=== PATIENT | female | born 1955 | race Caucasian/White ===

== ENCOUNTER 2020-01-13 20:42 | Emergency (ER) | payer BC, SELFPAY ==
[2020-01-13 20:49] VITALS: BP 150/71; PULSE 75; RESP 16; TEMP 36.1; O2SAT 94
--- NOTE | 2020-01-13 20:50 | ED.GENADUL_ITS ---
Discharge Plan Disposition Patient Disposition: HOME Condition: Stable Discharge Details Chief Complaint: Laceration Clinical Impression: Face lacerations, Head injury Primary Care Provider: Faye Dougherty ED Provider: Tucker Anand Home Meds and New Rx's Prescriptions: No Action calcium carbonate-vitamin D3 [Calcium 500 + D] 1 EACH tablet 1 ea PO DAILY RF: 0 Discharge Instructions Instructions: Head Injury (ED), Facial Laceration (ED) Additional Instructions: Keep the area clean and dry, you may apply antibiotic ointment twice daily. Cool compresses as tolerated. Gfsq-[id number] medication such as Tylenol and/or Motrin as directed for discomfort. Please watch for new or evolving symptoms and return to the ER for any concerns. Sutures should be removed in 5 days. I do recommend reaching out your primary care provider on Wednesday to discuss outpatient reevaluation Medical Decision Making 64-year-old female presents having sustained a laceration after a fall getting out of an [place] chair. She does admit to having a couple glasses of wine. She was asymptomatic prior to the fall. Denies LOC. She appears well, nontoxic and is neurologically intact. Will update tetanus, repair the laceration, and given her head injury and alcohol, I do believe obtaining head CT is reasonable to rule intracranial process Tdap given Discussed benign CT with the patient. She has no additional questions or concerns and was comfortable discharge. Medical Records Medical records reviewed: Yes I reviewed the patient's medical records. Imaging Data Radiologic Study: Attestation: I personally reviewed and interpreted this imaging study as follows: Imaging: CT Scan Radiologist's impression: CT head without contrast read as negative per virtual radiology HPI General Mode of arrival: ambulatory . Date/Time Provider Initiated Documentation: 01/13/20 20:42 . Limitations to Documentation: no limitations . Information obtained by: patient . HPI Narrative: This is a 64-year-old female who reports approximately 3 hours ago she was at her son's house, had a couple glasses of wine, and upon getting up out of an [place] chair fell forward striking her head on the ground. She reports that prior to the fall she was asymptomatic. Did not feel dizzy, weak, or near syncope. She remembers the entire fall and denies any LOC. Reports pain at the site of her laceration but denies global headache, visual changes, neck pain, numbness, tingling, weakness. She does not believe that her tetanus is up-to-date. She denies any other injury from the fall. Related Data Home Medications Medication Instructions Recorded Confirmed calcium carbonate-vitamin D3 1 ea PO DAILY 11/07/13 01/13/20 [Calcium 500 + D Tablet] Allergies Allergy/AdvReac Type Severity Reaction Status Date / Time No Known Allergies Allergy Unverified 01/13/20 20:55 Review of Systems Constitutional Constitutional: Denies headache(s) Eyes Eyes: Denies change in vision ENT Ears, Nose, Mouth, and Throat: Denies headache(s), Denies mouth pain and Denies neck pain Cardiovascular Cardiovascular: Denies chest pain and Denies dyspnea Respiratory Respiratory: Denies dyspnea Gastrointestinal Gastrointestinal: Denies nausea and Denies vomiting Musculoskeletal Musculoskeletal: Denies neck pain, Denies numbness, Denies stiffness and Denies tingling Neurologic Neurologic: Denies headache(s), Denies numbness and Denies tingling Hematologic/Lymphatic Hematologic/Lymphatic: Denies easy bleeding and Denies easy bruising PFSH Surgical History fx right elbow Family History Mother , Pancreatic CA at age 93. Diabetes Essential hypertension Father , lung issues at age 68. No problems noted. Sister No problems noted. Brother No problems noted. Social History Smoking/Tobacco Use Status: Former Tobacco Use Alcohol Intake: current Alcohol type: wine Drug use: Never Substance use type: does not use Do you feel safe at home: Yes Do you feel safe in your relationship?: Yes Exam Const General: cooperative, healthy appearing, comfortable and no acute distress Orientation: alert, awake and oriented x3 HENMT Head: normal to inspection, no palpable skull fracture, normocephalic and atraumatic Ears: hearing grossly normal bilaterally, external ears normal, TM's normal bila terally and EAC's normal General nose exam: other (Abrasion across the bridge of the nose) Face and sinus: tenderness on the left periorbital Face images: 1. 2.5 cm slightly irregular laceration. Well approximated. Bleeding controlled. No foreign body. Mouth: moist mucous membranes Teeth and gingiva: dentition normal Throat: posterior oropharynx normal Eyes General: appearance normal, both eyes and all related structures Alignment and Position: alignment normal Periorbital: periorbital findings abnormal (Laceration as above, otherwise unremarkable) Eyelids: eyelids normal Conjunctivae: conjunctivae normal Sclera: sclerae normal Cornea: corneas normal Pupils: PERRL EOM: EOM intact bilaterally Direct ophthalmoscopy: normal light reflex Neck Neck: normal visual inspection, full ROM, trachea midline, supple and nontender Resp Effort & Inspection: normal respiratory effort and able to speak in complete sentences Auscultation: clear to auscultation bilaterally Cardio Rate: regular rate Rhythm: regular rhythm GI Palpation: soft and nontender Back/Spine/Pelvis Back: No back tenderness Skin General skin exam: no rashes or lesions noted Neuro General: patient alert, patient awake, patient oriented x3, moves all extremities and no focal motor deficits Cranial Nerves: CN's II-XI intact bilaterally Cognition: normal cognition Speech: speech normal Gait: normal gait Motor: muscle tone normal throughout and strength 5/5 throughout Sensory Exam: no sensory deficits noted Extrem General: normal to inspection, full ROM and capillary refill normal Psych Appearance: grossly normal Mental Status: mental status grossly normal Procedures Laceration Laceration 1: Site: face Side (If applicable): left (Superior periorbital region) Size (cm): 2.5 Description: irregular Depth: simple, single layer Local Anesthetic: Lidocaine 2% Amount of anesthesia used (mL): 5 Pre-repair: wound explored, irrigated extensively and deep structures intact Skin layer closed with: nylon Size (cm): 6-0 Number of sutures: 5 Technique: simple, interrupted
--- NOTE | 2020-01-13 21:00 | DI.CT_ITS ---
EXAM: CT HEAD WO CLINICAL HISTORY: fall/head injury. TECHNIQUE: Imaging Protocol: Axial computed tomography images with coronal and sagittal reformatted images were created and reviewed COMPARISON: No exams were available for comparison FINDINGS: Ventricles and Extra axial spaces: Normal in size and morphology for the patient's age. Hemorrhage: None. Cerebral parenchyma: Normal. Midline shift: None. Brainstem/Cerebellum: Normal. Calvarium: Normal. Visualized Paranasal sinuses: Mild mucosal thickening of the ethmoids. Mastoids: Clear. The nose is not fully included on the exam but there is a left nasal fracture. IMPRESSION: Left nasal fracture. No acute intracranial process. RADIATION DOSE DELIVERED: Total DLP DATA REPOSITORY: All CT scans at this facility are submitted to the National Radiology Data Registry (NRDR) Dose Index Registry (DIR) with the [employer] (A[employer]). RADIATION OPTIMIZATION: All CT scans at this facility use at least one of these dose optimization te chniques: automated exposure control; mA and/or kV adjustment per patient size (includes targeted exa ms where dose is matched to clinical indication); or iterative reconstruction.
[2020-01-13] MEDS: Tetanus & Diphtheria Tox,ADULT 0.5 ML VIAL IM (21:34)
--- NOTE | 2020-01-13 21:45 | NUR.NOTE ---
pt fell forward out of a low chair this evening at a camp fire, she hit her head on a rock. she denies LOC , no neck tenderness, no other injuriesNursing Note:
--- NOTE | 2020-01-13 21:55 | DI.VRAD_ITS ---
PROCEDURE INFORMATION: Exam: CT Head Without Contrast Exam date and time: 01/13/2020 9:07 PM Age: 64 years old Clinical indication: Injury or trauma; Patient HX: Fall/head injury TECHNIQUE: Imaging protocol: Computed tomography of the head without contrast. COMPARISON: No relevant prior studies available. FINDINGS: Brain: There is mild diffuse cerebral atrophy. No acute hemorrhage. No mass effect or midline shift. No extra-axial collection. Ventricles: No hydrocephalus. Bones/joints: Unremarkable. No acute fracture. Sinuses: Minimal mucosal thickening in the paranasal sinuses. Mastoid air cells: Visualized mastoid air cells are well aerated. Soft tissues: Soft tissue swelling in the left frontal region. IMPRESSION: No acute intracranial abnormality. Dictated and Authenticated by: Holden Terry MD. Ordering:PAYAL Ceballos MD
[2020-01-13 22:14] VITALS: PULSE 70; O2SAT 97
== END 2020-01-13 22:10 | disposition home or self-care (01) ==
PROVIDERS: Emergency Provider Physician Assistant; PCP Internal Medicine
DX: S01.112A Laceration without foreign body of left eyelid and periocular area, initial encounter (principal); S02.2XXA Fracture of nasal bones, initial encounter for closed fracture; S09.90XA Unspecified injury of head, initial encounter; W07.XXXA Fall from chair, initial encounter; W22.09XA Striking against other stationary object, initial encounter
CPT/HCPCS: 12011; 21310; 90471; 70450

== ENCOUNTER 2020-01-18 17:35 | Emergency (ER) | payer BC, SELFPAY ==
[2020-01-18 17:40] VITALS: BP 150/79; PULSE 73; RESP 17; TEMP 36.5; O2SAT 95
--- NOTE | 2020-01-18 17:59 | ED.GENADUL_ITS ---
Discharge Plan Disposition Patient Disposition: HOME Condition: Improving Discharge Details Chief Complaint: Recheck Clinical Impression: Visit for wound check Primary Care Provider: Faye Dougherty ED Provider: Sebastien Del Real Home Meds and New Rx's Prescriptions: No Action calcium carbonate-vitamin D3 [Calcium 500 + D] 1 EACH tablet 1 ea PO DAILY RF: 0 Discharge Instructions Additional Instructions: Please keep wound clean, dry and protected. Please return to the emergency department in 2 days for wound reassessment and potential suture removal at that time. Return to the ER sooner for any worsening or new concerning symptoms. Medical Decision Making 64-year-old female here 5 days status post facial laceration with primary clos ure. No signs of infection. Wound appears to be healing well. I do not believe sutures are ready for removal at this time. I advised we wait 2 additional days for wound to heal further before removing sutures. Patient had mildly elevated blood pressure of 150/79. I informed her of this and advised to recheck in a couple days. Usual and customary discharge instructions were provided. HPI General Mode of arrival: ambulatory . Date/Time Provider Initiated Documentation: 01/18/20 17:53 . Limitations to Documentation: no limitations . Information obtained by: patient . HPI Narrative: 64-year-old female presents today for wound check. Patient was here for facial laceration and had sutures placed on 01/13/2020. She was advised to return in 5 days for suture removal. She notes wound is been healing well with no significant pain, redness, discharge or swelling. Related Data Home Medications Medication Instructions Recorded Confirmed calcium carbonate-vitamin D3 1 ea PO DAILY 11/07/13 01/18/20 [Calcium 500 + D Tablet] Allergies Allergy/AdvReac Type Severity Reaction Status Date / Time No Known Allergies Allergy Unverified 01/18/20 17:44 General Stated Complaint: Recheck DENISHA: 5 Review of Systems Integumentary/Breasts Skin/Breast: Reports as per HPI [facility] Surgical History fx right elbow Family History Mother , Pancreatic CA at age 93. Diabetes Essential hypertension Father , lung issues at age 68. No problems noted. Sister No problems noted. Brother No problems noted. Social History Smoking/Tobacco Use Status: Former Tobacco Use Alcohol Intake: current Alcohol type: wine Drug use: Never Substance use type: does not use Do you feel safe at home: Yes Do you feel safe in your relationship?: Yes Exam Eyes EOM: EOM intact bilaterally Skin General skin exam: no erythema Wounds: wounds noted (Left supraorbital wound, sutures intact, healing) Course Vital Signs Vital signs: Vital Signs Temperature 36.5 C 01/18/20 17:40 Pulse 73 01/18/20 17:40 Respiratory Rate 17 01/18/20 17:40 Blood Pressure 150/79 H 01/18/20 17:40 Pulse Oximetry 95 01/18/20 17:40 Temperature 36.5 C 01/18/20 17:40 Temperature Source Tympanic 01/18/20 17:40 Pulse 73 01/18/20 17:40 Respiratory Rate 17 01/18/20 17:40 Blood Pressure 150/79 H 01/18/20 17:40 Blood Pressure Position Sitting 01/18/20 17:40 Pulse Oximetry 95 01/18/20 17:40 Oxygen Delivery Method Room Air 01/18/20 17:40 Oxygen Flow Rate 0 01/18/20 17:40 Pain Level 0 01/18/20 17:40
== END 2020-01-18 18:05 | disposition home or self-care (01) ==
PROVIDERS: Emergency Provider Student in an Organized Health Care Education/Training Program; PCP Internal Medicine
DX: S01.112A Laceration without foreign body of left eyelid and periocular area, initial encounter (principal); W07.XXXA Fall from chair, initial encounter; Z48.1 Encounter for planned postprocedural wound closure

== ENCOUNTER 2020-01-20 12:25 | Emergency (ER) | payer BC, SELFPAY ==
--- NOTE | 2020-01-20 12:27 | ED.GENADUL_ITS ---
Discharge Plan Disposition Patient Disposition: HOME Condition: Stable Discharge Details Chief Complaint: SutureRem Clinical Impression: Encounter for removal of sutures Primary Care Provider: Faye Dougherty ED Provider: Jayla Tony Home Meds and New Rx's Prescriptions: Continued calcium carbonate-vitamin D3 [Calcium 500 + D] 1 EACH tablet 1 ea PO DAILY RF: 0 Discharge Instructions Instructions: Wound Healing and Your Diet (ED) Additional Instructions: Please keep your wound protected from cold weather and sun exposure to minimize scar and encourage healing. Please return to the emergency department for any worsening or new concerning symptoms. Referrals: Faye Dougherty MD [Primary Care Provider] - Discharge Data Discharge Date/Time-TO BE ENTERED AT DEPARTURE: 01/20/20 12:35 Medical Decision Making <Sebastien Del Real MD - Last Filed: 01/21/20 13:44> 64-year-old female here 7 days after laceration repair for suture removal. Wound was evaluated and appears to be healing well with no signs of infection. Sutures removed by LALIT Tony without complication. Usual and customary discharge instructions were provided. <LALIT Galdamez - Last Filed: 01/20/20 12:38> Patient pleasant 64-year-old female presenting today for suture removal. Wound appears to be healing well no evidence of infection. #5 simple interrupted stitches were easily removed by myself with no signs of infection. Patient tolerated this well. Return precautions were discussed. Wound care was discussed. HPI <Sebastien Del Real MD - Last Filed: 01/21/20 13:44> General Mode of arrival: ambulatory . Date/Time Provider Initiated Documentation: 01/20/20 12:26 . Limitations to Documentation: no limitations . Information obtained by: patient . HPI Narrative: 64-year-old female presents today for wound check. Patient was here for facial laceration and had sutures placed on 01/13/2020. She returned on 01/18/2020 for wound assessment and it was determined that sutures were not ready to be removed. She was advised to return in 2 days for wound reassessment. She notes wound is been healing well with no significant pain, redness, discharge or swelling. Related Data Home Medications Medication Instructions Recorded Confirmed calcium carbonate-vitamin D3 1 ea PO DAILY 11/07/13 01/18/20 [Calcium 500 + D] Allergies Allergy/AdvReac Type Severity Reaction Status Date / Time No Known Allergies Allergy Unverified 01/18/20 17:44 <LALIT Galdamez - Last Filed: 01/20/20 12:38> General DENISHA: 5 Review of Systems <Sebastien Del Real MD - Last Filed: 01/21/20 13:44> Constitutional Constitutional: Denies fever(s) Integumentary/Breasts Skin/Breast: Reports as per HPI PFSH <Sebastien Del Real MD - Last Filed: 01/21/20 13:44> Surgical History fx right elbow Family History Mother , Pancreatic CA at age 93. Diabetes Essential hypertension Father , lung issues at age 68. No problems noted. Sister No problems noted. Brother No problems noted. Social History Smoking/Tobacco Use Status: Former Tobacco Use Alcohol Intake: current Alcohol type: wine Drug use: Never Substance use type: does not use Do you feel safe at home: Yes Do you feel safe in your relationship?: Yes Exam <Sebastien Del Real MD - Last Filed: 01/21/20 13:44> Skin Wounds: wounds noted (Left supraorbital, healing well, no erythema or swelling)
[2020-01-20 12:28] VITALS: BP 168/85; PULSE 90; TEMP 36.6; O2SAT 97
== END 2020-01-20 12:35 | disposition home or self-care (01) ==
PROVIDERS: Emergency Provider Physician Assistant; PCP Internal Medicine
DX: S01.112D Laceration without foreign body of left eyelid and periocular area, subsequent encounter (principal); W07.XXXD Fall from chair, subsequent encounter; Z48.02 Encounter for removal of sutures

== ENCOUNTER 2020-03-15 00:42 | Outpatient (CLI) | payer BC, SELFPAY ==
--- NOTE | 2020-03-15 07:48 | DI.MAMMO_ITS ---
EXAM: MG MAMMO SCREENING CLINICAL HISTORY: screening, Z12.39 TECHNIQUE: Bilateral full field digital CC and MLO mammographic images were obtained with 3D tomosyn thesis and utilizing computer aided detection (CAD). COMPARISON: Available for comparison. FINDINGS: Masses/Architectural Distortion: None seen. Microcalcifications: No suspicious pleomorphic-type are seen. Skin Thickening/Nipple Retraction: None. IMPRESSION: 1. No significant interval change with no specific features of malignancy noted. 2. Unless there is more urgent need, screening mammography is recommended, as per [employer] guidelines. BI-RADS Category 1 - Negative Breast Density - Category B - Scattered areas of fibroglandular density A negative radiographic report should not delay biopsy if a dominant or clinically suspicious mass is present. Up to ten percent of cancers are not identified on mammography. A negative report may reinforce clinical impression. Adenosis and dense breasts may obscure an underlying neoplasm. False positive reports average 6 to 10%. Patient will receive a letter notifying them of these results.
== END 2020-03-15 01:02 ==
PROVIDERS: PCP Internal Medicine; Visit Provider Internal Medicine
DX: Z12.31 Encounter for screening mammogram for malignant neoplasm of breast (principal)
CPT/HCPCS: 77063; 77067

== ENCOUNTER 2020-04-22 10:11 | Day surgery (SDC) | payer BC, SELFPAY ==
--- NOTE | 2020-04-22 06:51 | COLE_ITS ---
Date of service: 04/22/20 Time of Service: 13:15 Colonoscopy Report Date of procedure: 04/22/20 Pre-op diagnosis general: Colon Cancer Screening Procedure: Colonoscopy with polypectomy and tattoo placement Surgeon: Mickie Banuelos Anesthesia proc note operative: other (General/ ASA 2/ Rasheed Mason, EDGARD) Estimated blood loss (mL): 3 Pathology: other (Ascending/Transverse colon polyps x2, sigmoid polyps x2) Complications: None Disposition: same day Indications: Mrs. Nuñez is a 65-year-old female who was seen in the office for a screening colonoscopy. Her last colonoscopy was 10 years ago and was normal. She has no family history of colon cancer. Recommend Colonoscopy under sedation Risks, benefits and complications have been reviewed. Complications include but are not limited to bleeding, pain, perforation, missed small lesion /polyp, sore throat, aspiration and adverse reaction to the medications. Questions were entertained and answered to their satisfaction and they wished to proceed. No guarantees were given or implied. Prep: Miralax/Dulcolax Procedure Start Time: 13:15 Procedure End Time: 13:45 Retraction Time: 33 minutes Findings: 4 polyps. One was a large sessile serrated adenoma. removed with a hot snare and tattooed Procedure Description: After informed consent was obtained the patient was taken to the procedure room and placed in a left decubitous position. Monitors were applied and a time out was done. The patients name, date of , procedure, allergies to medications and metal in their body was reviewed. The patient was then sedated. Once sedated and comfortable a rectal exam was done. External exam was normal. Internal exam revealed a normal sphincter tone and no palpable masses. The scope was then introduced and retro-flexed. No internal hemorrhoids were identified. The scope was then advanced to the cecum without difficulty. The ileocecal valve and appendiceal orifice were identified. The prep was adequate. The scope was then slowly retracted over 33 minutes back into the rectum. Poly ps were removed with cold forceps in the sigmoid colon and Ascending/Transverse colon. A large carpet like polyps was removed with hot snare and cold forceps in the Ascending/Transverse colon at 80cm. The area was tattooed. There were no diverticula. The scope was removed and the patient was woken up and taken back to Same day surgery in stable condition. The patient tolerated the procedure well and there were no immediate complications. Follow up:Follow up recommendations will depend on final pathology
--- NOTE | 2020-04-22 06:53 | W.PM.DSUDISC ---
Discharge Plan Disposition Patient Disposition: HOME Condition: Good Discharge Details Reason For Visit: Colonoscopy Attending Provider: Mickie Banuelos Primary Care Provider: Faye Dougherty Home Meds and New Rx's Prescriptions: Continued calcium carbonate-vitamin D3 [Calcium 500 + D] 1 EACH tablet 1 ea PO DAILY RF: 0 Discontinued bisacodyl [Dulcolax (bisacodyl)] 5 mg tablet,delayed release (DR/EC) 5 mg PO ONCE Qty: 4 RF: 0 polyethylene glycol 3350 17 gram powder in packet 255 g PO DAILY Qty: 15 RF: 0 Discharge Instructions Instructions: Colorectal Polyps (DC) Additional Instructions: Findings: 4 polyps Follow up: depends on final pathology Please call if you develop: fevers >101.5 Nausea or Vomiting Abdominal pain that is not transient DAY SURGERY UNIT POST ENDOSCOPY INSTRUCTIONS 1. Because there will be medication in your system for the next 24 hours, you may feel a little sleepy. Your coordination will be affected. Therefore: a. Do not drive or operate dangerous equipment for 24 hours. b. Do not drink alcohol beverages for 24 hours (not even beer). c. Plan to go home and rest for the day. 2. Generally there are no restrictions on your activity after a day or so has gone by, but you may feel a bit fatigued for a few days. 3 After you arrive home you may have a light meal and return to a normal diet as you can tolerate it without feeling sick to your stomach. 4. After surgery, you may feel pain or discomfort. This should be only transient, but if it persists please contact your doctor. 5. If there are any questions regarding the findings of your procedure, please feel free to contact your doctor. 6. If you are unable to contact your doctor with a problem, contact the hospital at [phone]. 7. Continue all your regular medications unless directed otherwise. I understand the above instructions and have no questions. Signature of Patient or Responsible Adult Escort Date/Time Name of Responsible Adult Escort Signature of Nurse Date/Time Activity:: Activity as Tolerated Diet:: As Tolerated Discharge Orders Discharge Orders: Discharge Order (Routine); Ordered 04/22/20 Ordered By: Mickie Banuelos
[2020-04-22 10:15] VITALS: BP 124/83; PULSE 71; RESP 16; TEMP 36.2; O2SAT 98
[2020-04-22] MEDS: Lactated Ringers 1,000 ML 80 ML IV (10:30)
--- NOTE | 2020-04-22 13:13 | BOWEL_PTH ---
PATIENT: Camilla Nuñez LOC: [facility] U#:[id number] AGE/SX: 65/F ROOM: RE04/22/[address]: Mickie Banuelos MD : 1955 BED: DIS: 04/22/2020 SPEC #: [id number] RECD: 04/22/20 15:17 STATUS: TYLER REQ #: [id number] CAIN: 04/22/20 13:[address]: Mickie Banuelos DEPT: Surgical Specimen RECD BY: Yolanda Luis ENTERED: 04/22/20 15:18 SP TYPE: Bowel OTHR DR: Faye Dougherty MD Tissues: 1 - BIOPSY BOWEL 2 - BIOPSY BOWEL Procedures: GROSS AND MICRO LEVEL 4 Comments: [id number]
[2020-04-22] MEDS: Endoscopic Tattoo 5 ML SYR IJ (13:31)
[2020-04-22 14:23] VITALS: BP 121/76; PULSE 57; RESP 16; TEMP 36.2; O2SAT 100
== END 2020-04-22 14:42 | disposition home or self-care (01) ==
LOC: SUR 10:11
PROVIDERS: PCP Internal Medicine; Visit Provider Surgery
PROC: 0DJD8ZZ Inspection of Lower Intestinal Tract, Via Natural or Artificial Opening Endoscopic (ICD-10-PCS; CPT 45378; principal; 2020-04-22 11:45)
DX: Z12.11 Encounter for screening for malignant neoplasm of colon (principal); D12.4 Benign neoplasm of descending colon; D12.5 Benign neoplasm of sigmoid colon
CPT/HCPCS: 45385; 45380; 45381; 88305; J2001; J2704

== ENCOUNTER 2020-07-02 10:35 | Outpatient (REF) | payer BC, SELFPAY ==
--- NOTE | 2020-07-02 11:15 | PAPFT_PTH ---
PATIENT: Camilla Nuñez LOC: [facility] U#:[id number] AGE/SX: 65/F ROOM: RE07/02/[address]: Faye Dougherty MD : 1955 BED: DIS: 07/02/2020 SPEC #: [id number] RECD: 07/02/20 18:03 STATUS: TYLER REQ #: [id number] CAIN: 07/02/20 11:[address]: Faye Dougherty DEPT: [facility] Cytology RECD BY: Yolanda Luis Tissues: 1 - CX/ENDOCX FOR PAP SMEARS Procedures: PAP THIN PREP/UVM Screening HPV DNA PROBE Comments: [id number]
== END 2020-07-02 10:55 ==
LOC: LBN 10:35
PROVIDERS: PCP Internal Medicine; Visit Provider Internal Medicine
DX: R87.610 Atypical squamous cells of undetermined significance on cytologic smear of cervix (ASC-US) (principal)
CPT/HCPCS: 88142; 87624

== ENCOUNTER 2021-07-08 12:15 | Outpatient (REF) | payer BC, SELFPAY ==
--- NOTE | 2021-07-08 10:45 | PAPFT_PTH ---
PATIENT: Camilla Nuñez LOC: [facility] U#:[id number] AGE/SX: 66/F ROOM: RE07/08/[address]: Faye Dougherty MD : 1955 BED: DIS: 07/08/2021 SPEC #: [id number] RECD: 07/08/21 17:33 STATUS: TYLER REArin #: [id number] CAIN: 07/08/21 10:[address]: Faye Dougherty DEPT: [facility] Cytology RECD BY: Yolanda Luis Tissues: 1 - CX/ENDOCX FOR PAP SMEARS Procedures: PAP THIN PREP/UVM Screening HPV DNA PROBE Comments: [id number]
== END 2021-07-08 12:16 | disposition home or self-care (01) ==
LOC: LBN 12:15
PROVIDERS: PCP Internal Medicine; Visit Provider Internal Medicine
DX: Z12.4 Encounter for screening for malignant neoplasm of cervix (principal); Z11.51 Encounter for screening for human papillomavirus (HPV)
CPT/HCPCS: 88142; 87624

== ENCOUNTER 2021-07-25 03:41 | Outpatient (CLI) | payer BC, SELFPAY ==
[2021-07-25 08:14] LABS: BUN 17 mg/dL (7-18); CREATININE 0.9 mg/dL (0.55-1.02); Calcium 8.7 mg/dL (8.5-10.1); Glucose 127 mg/dL (74-106)
[2021-07-25 08:15] LABS: Anion Gap 7.6 mmol/L (3-11); CO2 28.4 mmol/L (21.0-32.0); Calculated LDL 109 mg/dL (<100); Chloride 106 mmol/L (98-107); Cholesterol 206 mg/dL (<200); HDL Cholesterol 81 mg/dL (40-60); Potassium 4.2 mmol/L (3.5-5.1); Sodium 142 mmol/L (136-145); Triglyceride 81 mg/dL (<150)
== END 2021-07-25 03:42 | disposition home or self-care (01) ==
LOC: LBO 03:41
PROVIDERS: PCP Internal Medicine; Visit Provider Internal Medicine
DX: Z13.1 Encounter for screening for diabetes mellitus (principal); Z13.220 Encounter for screening for lipoid disorders
CPT/HCPCS: 36415; 80048; 80061

== ENCOUNTER 2022-07-31 01:27 | Outpatient (CLI) | payer BC, SELFPAY ==
--- OUTSIDE RECORDS SUMMARY | 2022-07-31 01:28 | XMS_ITS | Encounter Summary ---
:1955 Author Organization [facility] Address [address] [place] [address] Care Team Providers Name Role Phone Faye Dougherty MD Primary Care Provider Encounter Details Date Type Department Care Team Description 07/03/2020 Lab Requisition [facility] Medical Sharples Faye Dougherty, Adi hernandez for other Pathology & MD general examination Laboratory Medicine [address] [place] [id number] Social History Tobacco Use Types Packs/Day Years Used Date Smoking Tobacco: Never Assessed Sex Assigned at Date Recorded Not on file documented as of this encounter Plan of Treatment Not on filedocumented as of this encounter Procedures Procedure Name Priority Date/Time Associated Comments Diagnosis PAP TEST Today 07/02/2020 11:15 Encounter for other Resu lts for this EDT general examination procedur e are in the results section. HUMAN PAPILLOMAVIRUS Today 07/02/2020 11:15 Encounter for ot her Results for this (HPV) DETECTION-HIGH EDT general examination procedure are in RISK TYPES the results section. documented in this encounter Results HUMAN PAPILLOMAVIRUS (HPV) DETECTION-HIGH RISK TYPES (07/02/2020 11:15 EDT) [facility] gist Method Time Signature Human Negative Negative 08/07/2020 [facility] Papillomavirus 8:05 EST CENTER (HPV) LABORATORY Detection-High SERVICES Types Comment: No E6 or E7 mRNA is detected fr om HPV types 16,18,31,33,35,39,45,51,52,56,58,59,66, and 68 by tuber machine cutter mediated amplification. Specimen Anatomical Collection Method Collection Time Receive d Time (Source) Location / / Volume Laterality Pap Test (Cervix 07/02/2020 11:15 11/24/2 020 and/or EDT 12:17 EST Endocervix) Faye Dougherty MD MICROBIOLOGY - GENERAL ORDER YOHANNES Performing Organization Address City/State/ZIP Code Phon e Number [facility] [address] [place] [address] SERVICES PAP TEST (07/02/2020 11:15 EDT) Component Value Ref Test Analysis Performed At [facility] Range Method Time Signature Specimens A. Cervix and/or 07/10/2020 [facility] Endocervix , 9:29 [facility] ThinPrep Imaging LABORATORY System with SERVICES Manual Evaluation Specimen Satisfactory for 07/10/2020 [facility] Adequacy Evaluation - 9:29 [facility] transformation LABORATORY zone component SERVICES present General Epithelial Cell 07/10/2020 [facility] Categorization Abnormality 9: [facility] LABORATORY SERVICES Descriptive Squamous Cell 07/10/2020 [facility] Diagnosis Abnormality - 9:29 [facility] Atypical LABORATORY squamous cells, SERVICES undetermined significance (ASC-US). Educational [facility] recommends following A SCCP's 2012 Updated Consensus Guidelines for the Management of Abnormal Cervical Cancer Screening Tests and Cancer Precursors (JLGTD, 2013; 17(5):S1-S27). Consensus guidelines are available online at www.asccp.org. 07/10/2020 [facility] D[facility] Comments 9:29 [facility] LABORATORY SERVICES Attestation By the signature below, the attending physician certifies that they have personally conducted a gross and/or microscopic [facility] Electronically examination of the described specimens and rendered or confirmed the above diagnosis. 9:29 [facility] signed by Alisa Wheeler MD on 07/10/2020 at 0929 Clinical History See below 07/10/2020 [facility] 9:29 [facility] LABORATORY SERVICES Performing Lab [facility] 07/10/2020 [facility] AL LAB 9:29 [facility] LABORATORY SERVICES Scanned Images 07/10/2020 [facility] 9:29 [facility] LABORATORY SERVICES Specimen Anatomical Collection Method Collection Time Receive d Time (Source) Location / / Volume Laterality Pap Test (Cervix 07/02/2020 11:15 10/21/2 020 and/or EDT 10:03 EDT Endocervix) Faye Dougherty MD PATHOLOGY ORDERABLES Performing Organization Address City/State/ZIP Code Phon e Number [facility] [address] [place] [address] SERVICES documented in this encounter Visit Diagnoses Diagnosis Encounter for other general examination documented in this encounter Care Teams Catering Sales Manager Relationship Specialty Start Date End Date Faye Dougherty MD PCP - General 09/13/[address] [place] [address] documented as of this encounter
--- OUTSIDE RECORDS SUMMARY | 2022-07-31 01:28 | XMS_ITS | Encounter Summary ---
:[address] [facility] Address [address] [place] [address] Care Team Providers Name Role Phone Unavailable Primary Care Provider Unavailable Encounter Details Date Type Department Care Team Description 07/14/2017 Results Only [facility]- Laureano Ramos MD [phone] [address] [place], [place] [address] (Wo rk) Social History Tobacco Use Types Packs/Day Years Used Date Smoking Tobacco: Never Assessed Sex Assigned at Date Recorded Not on file documented as of this encounter Plan of Treatment Not on filedocumented as of this encounter Procedures Procedure Name Priority Date/Time Associated Diagnosis Comme nts PAP TEST- RESULT Routine 07/14/2017 0:00 EDT Resu lts for this ONLY procedure are i n the results section. documented in this encounter Results PAP TEST- RESULT ONLY (07/14/2017 0:00 EDT) Component Value Ref Test Analysis Performed At [facility] Range Method Time Signature Pathology CYTOPATHOLOGY REPORT [facility] MED[facility] AL Report: CENTER Reports generated via electronic interface contain origina l data; LABORATORY however they are lacking the format of the original report. SERVICES Caution should be taken when reading/interpreting unformatte d reports. Name: ? CHAPARRO NUÑEZ ? Accession #: ? [id number] : ? 1955 (Age: [age]) ??F ?Collect Date: ? 07/14/2017 Location: ? [facility] ? Receive Date: ? 07/15/2017 Provider: ?LAUREANO DOUGHERTY MD Copy to: ? Specimen/Source: ? Pap Test, Cervix, ThinPrep Imaging System with manual evaluation Last Menstrual Period: ? > 10 YRS ? SPECIMEN ADEQUACY ? Satisfactory for Evaluation - transformation zone component present GENERAL CATEGORIZATION ? Negative for Intraepithelial Lesion or Malignancy ? Document reviewed and electronically signed by: ? OCTAVIANO Marshall(ASCP) ? Report Date: ??07/28/2017 15:11 End of Report Specimen (Source) Anatomical Location Collection Method / Collectio n Time Received Time / Laterality Volume 07/14/2017 07/15/2017 Laureano Dougherty MD PATHOLOGY ORDERABLES Performing Organization Address City/State/ZIP Code Phon e Number [facility] [address] [place] [address] SERVICES documented in this encounter Visit Diagnoses Not on filedocumented in this encounter
--- OUTSIDE RECORDS SUMMARY | 2022-07-31 01:28 | XMS_ITS | Encounter Summary ---
:1955 Author Organization [facility] Address [address] [place] [address] Care Team Providers Name Role Phone Faye Dougherty MD Primary Care Provider Encounter Details Date Type Department Care Team Description 07/09/2021 Lab Requisition [facility] Faye Dougherty, Adi hernandez for other Pathology & MD general examination Laboratory Medicine [address] [place] [id number] Social History Tobacco Use Types Packs/Day Years Used Date Smoking Tobacco: Never Assessed Sex Assigned at Date Recorded Not on file documented as of this encounter Plan of Treatment Not on filedocumented as of this encounter Procedures Procedure Name Priority Date/Time Associated Comments Diagnosis PAP TEST Today 07/08/2021 10:45 Encounter for other Resu lts for this EDT general examination procedur e are in the results section. HUMAN PAPILLOMAVIRUS Today 07/08/2021 10:45 Encounter for ot her Results for this (HPV) DETECTION-HIGH EDT general examination procedure are in RISK TYPES the results section. documented in this encounter Results HUMAN PAPILLOMAVIRUS (HPV) DETECTION-HIGH RISK TYPES (07/08/2021 10:45 EDT) [facility] Method Time Signature Human Negative Negative 07/17/2021 [facility] Papillomavirus 7:59 EDT CENTER (HPV) LABORATORY Detection-High SERVICES Types Comment: No E6 or E7 mRNA is detected fr om HPV types 16,18,31,33,35,39,45,51,52,56,58,59,66, and 68 by concrete analyst mediated amplification. Specimen Anatomical Collection Method Collection Time Receive d Time (Source) Location / / Volume Laterality Pap Test (Cervix 07/08/2021 10:45 021 and/or EDT 12:01 EDT Endocervix) Faye Dougherty MD MICROBIOLOGY - GENERAL ORDER YOHANNES Performing Organization Address City/State/ZIP Code Phon e Number [facility] [address] [place] [address] SERVICES PAP TEST (07/08/2021 10:45 EDT) Component Value Ref Test Analysis Performed At [facility] Range Method Time Signature Specimens A. Cervix and/or 07/17/2021 [facility] Endocervix , 7:59 [facility] ThinPrep Imaging LABORATORY System with SERVICES Manual Evaluation Specimen Satisfactory for 07/17/2021 [facility] Adequacy Evaluation - 7:59 [facility] transformation LABORATORY zone component SERVICES present General Negative for 07/17/2021 [facility] Categorization intraepithelial 7:59 T CENTER lesion or LABORATORY malignancy SERVICES Descriptive Reactive cellular 07/17/2021 [facility] AL Diagnosis changes 7:59 [facility] associated with LABORATORY inflammation SERVICES present (includes repair). Attestation By the signature below, the attending physician certifies that they have personally conducted a gross and/or microscopic 1 09/16/2020 [facility] Electronically examination of the described specimens and rendered or confirmed the above diagnosis. 7:59 [facility] signed by DAWSON Mckenzie, RANDEE Floyd MD on 07/17 at 0759 Clinical History See below 07/17/2021 [facility] 7:59 [facility] LABORATORY SERVICES HPV The result for the Human Pap illomavirus (HPV) Detection-High Risk Types is Negative. No E6 or E7 mRNA is detected from HPV types 16,18,31,33,35,39,45,51,52,56,58,59,66, and 68 by concrete analyst mediated 07/17/2021 [facility] amplification.Testing was pe rformed on specimen [id number] and was resulted on 07/17/2021 0720 EDT by VERONIQUE, LAB INSTRUMENT RESULTS IN 7:59 [facility] LABORATORY SERVICES Performing Lab [facility] 07/17/2021 [facility] 7:59 [facility] LABORATORY SERVICES Scanned Images 07/17/2021 [facility] 7:59 [facility] LABORATORY SERVICES Specimen Anatomical Collection Method Collection Time Receive d Time (Source) Location / / Volume Laterality Pap Test (Cervix 07/08/2021 10:45 021 and/or EDT 11:48 EDT Endocervix) Faye Dougherty MD PATHOLOGY ORDERABLES Performing Organization Address City/State/ZIP Code Phon e Number [facility] [address] [place] [address] SERVICES documented in this encounter Visit Diagnoses Diagnosis Encounter for other general examination documented in this encounter Care Teams Supervising Law Enforcement Analyst Relationship Specialty Start Date End Date Faye Dougherty MD PCP - General 09/13/19 [address] [facility] [place] [address] documented as of this encounter
--- OUTSIDE RECORDS SUMMARY | 2022-07-31 01:28 | XMS_ITS | Clinical Summary ---
:1955 Author Organization [facility] Address [address] [place] [address] Care Team Providers Name Role Phone Faye Dougherty MD Primary Care Provider Social History Tobacco Use Types Packs/Day Years Used Date Smoking Tobacco: Never Assessed Sex Assigned at Date Recorded Not on file Plan of Treatment Health Maintenance Due Date Last Done Comments Hepatitis C Screen 1955 COVID-19 Vaccine (#1) 1955 Fall Risk Screening 01/27/2021 Insurance Payer Benefit Plan / Subscriber ID Effective Dates Phone Addre ss Type Group [employer] [id number] 2017-Present [address] [address] [place] [address] Care Teams Biodiesel Plant Operations Engineer Relationship Specialty Start Date End Date Faye Dougherty MD PCP - General 09/13/[address] [place] [address]
--- OUTSIDE RECORDS SUMMARY | 2022-07-31 01:29 | XMS_ITS | Encounter Summary ---
:1955 Author Organization [facility] [place] [address] Care Team Providers Name Role Phone Faye Dougherty MD Primary Care Provider Reason for Visit Reason Comments Follow-up Skin Check Encounter Details Date Type Department Care Team Description 02/28/2018 Office Visit Dermatology at [facility], Seborrh eic keratosis Raquel MARTINEZ [address] Kiet B DERMATOLOGY [place], [place] [id number] [phone] Social History Tobacco Use Types Packs/Day Years Used Date Smoking Tobacco: Never Smokeless Tobacco: Never Sex Assigned at Date Recorded Not on file documented as of this encounter Progress Notes Bk Santiago MD - 02/28/2018 8:30 AM EDT Problem: Follow-up right cheek lesion Camilla follows up and unfortunately she still has erythematous patches on her right cheek peripheralto the centralized site of a treated Gurdeep K on her right cheek that her son is getting in May and she hopes to have this cleared up by then Physical examination reveals 4 patchy patches of erythema peripheral to a healed central subcu treatment site with. It is they are slightly hyperkeratotic as well. 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 Today would recommend that we begin applications of imiquimod 5% cream on a q. at bedtime basis Wednesday through Wednesday only none on the weekends to this for 4 weeks and return to clinic 2. Will call in 3 g of imiquimod 5% cream, 12 packets, to her [facility] in [place] with 1 refill. 3. Return to clinic in 1 month for repeat check CC: Faye Dougherty MD documented in this encounter Plan of Treatment Not on filedocumented as of this encounter Visit Diagnoses Diagnosis Seborrheic keratosis Other seborrheic keratosis documented in this encounter Care Teams Case Investigator Relationship Specialty Start Date End Date Faye Dougherty MD PCP - General General Internal Medicine 01/27/[address] [place] [address] documented as of this encounter
--- OUTSIDE RECORDS SUMMARY | 2022-07-31 01:29 | XMS_ITS | Encounter Summary ---
:1955 Author Organization [facility] Address [address] [place] [address] Care Team Providers Name Role Phone Unavailable Primary Care Provider Unavailable Encounter Details Date Type Department Care Team Description 09/09/2010 Results Only [facility] Laureano Dougherty MD Laboratory Services - [address] [place] [address] [address] [place] [address] [phone] Social History Tobacco Use Types Packs/Day Years Used Date Smoking Tobacco: Never Assessed Sex Assigned at Date Recorded Not on file documented as of this encounter Plan of Treatment Not on filedocumented as of this encounter Procedures Procedure Name Priority Date/Time Associated Diagnosis Comme nts CYTOPATHOLOGY Routine 09/09/2010 0:00 EST Results for this procedure are i n the results section . documented in this encounter Results CYTOPATHOLOGY (09/09/2010 0:00 EST) Component Value Ref Test Analysis Performed At [facility] Method Time Signature Pathology CYTOPATHOLOGY REPORT ? [facility] Report: ? [facility] Reports generated via electr onic interface contain original data; ? however they are lacking the format of the original report. ? Caution should be taken when reading/interpreting unformatted reports. ? Name: ? SEVEROCHAPARRO ? Accession #: ? [id number] ? : ? 1955 (Age: 55) ??F ?Collect Date: ? 09/09/2010 ? Location: ? [facility] ? Receive Date: ? 09/10/2010 ? Provider: ?LAUREANO DOUGHERTY MD ? Copy to: ? Specimen/Source: ? Pap Test, Endocervix, ThinPrep Imaging System with ? manual evaluation ? Last Menstrual Period: ? unknown ? SPECIMEN ADEQUACY ? Satisfactory for Eval uation ? - transformation zone compon ent present ? GENERAL CATEGORIZATION ? Negative for Intraepi thelial Lesion or Malignancy ? Document reviewed and electr onically signed by: ? Kapil Awais, CT( CP) ? Report Date: ??2010 09:08 ? End of Report ? Specimen (Source) Anatomical Location Collection Method / Collectio n Time Received Time / Laterality Volume 09/09/2010 09/10/2010 Laureano Dougherty MD PATHOLOGY ORDERABLES Performing Organization Address City/State/ZIP Code Phon e Number [facility] [address] [place] [address] SERVICES [facility] [address] [place] [address] documented in this encounter Visit Diagnoses Not on filedocumented in this encounter
--- OUTSIDE RECORDS SUMMARY | 2022-07-31 01:29 | XMS_ITS | Encounter Summary ---
:1955 Author Organization [facility] [place] [address] Care Team Providers Name Role Phone Faye Dougherty MD Primary Care Provider Reason for Visit Reason Comments Medication Refill Encounter Details Date Type Department Care Team Description 04/25/2018 Refill Dermatology at [facility] Bk Castro MD [address] [facility] [address] [place] [address] DERMATOLOGY [phone] [place], [place] [address] (Wo rk) Social History Tobacco Use Types Packs/Day Years Used Date Smoking Tobacco: Never Smokeless Tobacco: Never Sex Assigned at Date Recorded Not on file documented as of this encounter Plan of Treatment Not on filedocumented as of this encounter Visit Diagnoses Not on filedocumented in this encounter Care Teams Territory Sales Manager Relationship Specialty Start Date End Date Faye Dougherty MD PCP - General General Internal Medicine 01/27/18 [address] [place] [address] documented as of this encounter
--- OUTSIDE RECORDS SUMMARY | 2022-07-31 01:29 | XMS_ITS | Encounter Summary ---
:1955 Author Organization [facility] Address [address] [place] [address] Care Team Providers Name Role Phone Unavailable Primary Care Provider Unavailable Encounter Details Date Type Department Care Team Description 11/07/2013 Results Only [facility] Laureano Dougherty MD Laboratory Services - [address] [place] [address] [address] [facility] [place] [place] [address] [phone] Social History Tobacco Use Types Packs/Day Years Used Date Smoking Tobacco: Never Assessed Sex Assigned at Date Recorded Not on file documented as of this encounter Plan of Treatment Not on filedocumented as of this encounter Procedures Procedure Name Priority Date/Time Associated Diagnosis Comme nts PAP TEST- RESULT Routine 11/07/2013 0:00 EST Resu lts for this ONLY procedure are i n the results section. documented in this encounter Results PAP TEST- RESULT ONLY (11/07/2013 0:00 EST) Component Value Ref Test Analysis Performed At [facility] Method Time Signature Pathology CYTOPATHOLOGY REPORT [facility] Report: [facility] Reports generated via electronic interface contain original data; however they are lacking the format of the original report. Caution should be taken when reading/interpreting unformatte d reports. Name: ? CHAPARRO NUÑEZ ? Accession #: ? [id number] : ? 1955 (Age: 58) ??F ?Collect Date: ? 11/07/2013 Location: ? [facility] ? Receive Date: ? 11/08/2013 Provider: ?LAUREANO DOUGHERTY MD Copy to: ? Specimen/Source: ?Pap Test, En docervix, ThinPrep Imaging System with manual evaluation Last Menstrual Period: ? unknown ? SPECIMEN ADEQUACY ? Satisfactory for Evaluation - assessment of transformation zone component not appl icable ( e.g. atrophy, vaginal sample, hysterectomy) - scant squamous epithelial component secondary to excessive inflammation GENERAL CATEGORIZATION ? Negative for Intraepithelial Lesion or Malignancy ? Document reviewed and electronically signed by: ? Fatoumata Espino, CT(ASCP)(IAC) ? Report Date: ??11/15/2013 15:05 End of Report Specimen (Source) Anatomical Location Collection Method / Collectio n Time Received Time / Laterality Volume 11/07/2013 11/08/2013 Laureano Dougherty MD PATHOLOGY ORDERABLES Performing Organization Address City/State/ZIP Code Phon e Number [facility] [address] [place] [address] SERVICES [facility] [address] [place] [address] documented in this encounter Visit Diagnoses Not on filedocumented in this encounter
--- OUTSIDE RECORDS SUMMARY | 2022-07-31 01:29 | XMS_ITS | Clinical Summary ---
:1955 Author Organization [facility] [place] [address] Care Team Providers Name Role Phone Faye Dougherty MD Primary Care Provider Allergies No known active allergies Medications Medication Sig Dispensed Refills Start Date End Date Status imiquimod (ALDARA) 5 % Apply to right 12 each 1 02/28/2018 Active Cream in Packet cheek area every HS Wednesday thru Wednesday (Not on weekends) for (4) four weeks Additional Information Patient not taking. Reported on 04/29/2018 Active Problems Problem Noted Date Seborrheic keratosis 01/27/2018 Social History Tobacco Use Types Packs/Day Years Used Date Smoking Tobacco: Never Smokeless Tobacco: Never Sex Assigned at Date Recorded Not on file Plan of Treatment Health Maintenance Due Date Last Done Comments Covid-19 Vaccine (#1) 1955 Hepatitis C Screening 01/27/1974 Tdap adult 01/27/1975 Tetanus vaccine 01/27/1975 HPV test 01/27/1986 PAP Smear 01/27/1986 Breast Cancer Share Decision Needed 1996 Colonoscopy 01/27/2001 Breast Cancer screening 01/27/2006 Zoster vaccine (1 of 2) 01/27/2006 Advance Directive 01/27/2011 Bone Density Scan 01/27/2021 Pneumoccocal Vaccine: 65+ (1 - PCV) 01/27/2021 Influenza (Flu) vaccine (1 of 1 - Influenza standard 05/14/2022 series) Insurance Payer Benefit Plan / Subscriber ID Effective Dates Phone Addre ss Type Group [employer] [id number] 2017-Antoni [phone] [address] [employer] [place] PPO t [address] [place], [place] [address] Care Teams Wireless Telegrapher Relationship Specialty Start Date End Date Faye Dougherty MD PCP - General General Internal Medicine 01/27/[address] [place] [address]
--- OUTSIDE RECORDS SUMMARY | 2022-07-31 01:29 | XMS_ITS | Encounter Summary ---
:1955 Author Organization [facility] Address [address] [place] [address] Care Team Providers Name Role Phone Unavailable Primary Care Provider Unavailable Encounter Details Date Type Department Care Team Description 01/12/2001 Results Only [facility] - Shani Arias od, Dorcas Nguyen, COMMERCIAL TITLE EXAMINER [address] [place] [phone] (Wo rk) Social History Tobacco Use Types Packs/Day Years Used Date Smoking Tobacco: Never Assessed Sex Assigned at Date Recorded Not on file documented as of this encounter Plan of Treatment Not on filedocumented as of this encounter Procedures Procedure Name Priority Date/Time Associated Diagnosis Comme nts CYTOPATHOLOGY Routine 01/12/2001 0:00 EDT Results for this procedure are i n the results section . documented in this encounter Results CYTOPATHOLOGY (01/12/2001 0:00 EDT) Component Value Ref Test Analysis Performed At [facility] Method Time Signature Pathology CYTOPATHOLOGY REPORT [facility] Report: [facility] Reports generated via electronic interface contain original data; however they are lacking the format of the original report. Caution should be taken when reading/interpreting unformatte d reports. Name: ? CHAPARRO NUÑEZ ? Accession #: ? [id number] : ? 1955 (Age: 45) ??F ?Collect Date: ? 01/12/2001 Location: ? [facility] ? Receive Date: ? 01/13/2001 Provider: ?DORCAS CARNEY COMMERCIAL TITLE EXAMINER Copy to: ? Specimen/Source: ?Conventional Pap Test, Cervix/En docervix Last Menstrual Period: ? 10/09/00 Previous Gynecologic Pathology: ? ASC-US: , repeats NL ? SPECIMEN ADEQUACY ? Satisfactory for eval uation but limited by an absence of a transformation zone component. GENERAL CATEGORIZATION ? Within Normal Limits ? Document reviewed and electronically signed by: ? OCTAVIANO Marshall(ASCP) ? Report Date: ??01/13/2001 15:47 End of Report Specimen (Source) Anatomical Location Collection Method / Collectio n Time Received Time / Laterality Volume 01/12/2001 01/13/2001 Dorcas Carney COMMERCIAL TITLE EXAMINER PATHOLOGY ORDERABLES Performing Organization Address City/State/ZIP Code Phon e Number [facility] [address] [place] [address] SERVICES [facility] [address] [place] [address] documented in this encounter Visit Diagnoses Not on filedocumented in this encounter
--- OUTSIDE RECORDS SUMMARY | 2022-07-31 01:29 | XMS_ITS | Encounter Summary ---
:1955 Author Organization [facility] [place] [address] Care Team Providers Name Role Phone Faye Dougherty MD Primary Care Provider Reason for Visit Reason Comments Follow-up Skin Check Encounter Details Date Type Department Care Team Description 02/10/2018 Office Visit Dermatology at [facility], Seborrh eic keratosis Raquel MARTINEZ [address] Kiet B DERMATOLOGY [place], [place] [phone] Social History Tobacco Use Types Packs/Day Years Used Date Smoking Tobacco: Never Smokeless Tobacco: Never Sex Assigned at Date Recorded Not on file documented as of this encounter Progress Notes [facility] MD - 02/10/2018 8:00 AM EDT Problem: Right cheek lesion Camilla follows up and had a partial response to the last treatment. She still has on her right cheekerythematous scaling patches peripheral to the centralized location of a prior seborrheic keratosis on her right cheek. Her son is getting in [facility] on a farm May and shewants to have this cleared up by then Physical examination confirms the findings Assessment plan: Seborrheic keratosis keratosis, recurrent, right cheek 1. Could consider light C&D removal of this 2. Patient reassured about benign nature of seborrheic keratosis 3. Return to clinic in 3 weeks for repeat check CC: Faye Dougherty MD documented in this encounter Plan of Treatment Not on filedocumented as of this encounter Visit Diagnoses Diagnosis Seborrheic keratosis Other seborrheic keratosis documented in this encounter Care Teams Cut Out Worker Relationship Specialty Start Date End Date Faye Dougherty MD PCP - General General Internal Medicine 01/27/[address] [place] [address] documented as of this encounter
--- OUTSIDE RECORDS SUMMARY | 2022-07-31 01:29 | XMS_ITS | Encounter Summary ---
:1955 Author Organization [facility] [address] Care Team Providers Name Role Phone Faye Dougherty MD Primary Care Provider Reason for Visit Reason Comments Follow-up Skin Check Encounter Details Date Type Department Care Team Description 01/27/2018 Office Visit Dermatology at [facility], Seborrh eic keratosis Raquel MARTINEZ [address] Kiet B DERMATOLOGY [place], [place] [phone] Social History Tobacco Use Types Packs/Day Years Used Date Smoking Tobacco: Never Smokeless Tobacco: Never Sex Assigned at Date Recorded Not on file documented as of this encounter Progress Notes [facility] [place] MD - 01/27/2018 3:30 PM EDT Problem: 1 right cheek lesion 2. History BCC right tip of nose June 1995 3. History of erythematous patch right cheek, clinical seborrheic keratosis, status post LN 2 x 2 therapy February/2007 Camilla follows up and has now erythematous patches peripheral to the centralized location of her prior Gurdeep K on the right cheek. Her son is getting in May she was ready to be done to lighten these Physical examination reveals erythematous slightly hyperkeratotic papules in a clock-like pattern onher right cheek with no central lesion present. Assessment and plan: Seborrheic keratosis recurrent right cheek 1. Could consider LN 2 x 2 treatment of this 2. Return to clinic in 2 weeks for repeat check. CC: Faye Dougherty MD documented in this encounter Plan of Treatment Not on filedocumented as of this encounter Visit Diagnoses Diagnosis Seborrheic keratosis Other seborrheic keratosis documented in this encounter Care Teams Patcher Bowling Ball Relationship Specialty Start Date End Date Faye Dougherty MD PCP - General General Internal Medicine 01/27/[address] [place] [address] documented as of this encounter
--- OUTSIDE RECORDS SUMMARY | 2022-07-31 01:29 | XMS_ITS | Encounter Summary ---
:1955 Author Organization [facility] Address [address] [place] [address] Care Team Providers Name Role Phone Unavailable Primary Care Provider Unavailable Encounter Details Date Type Department Care Team Description 08/01/2009 Orders Only [facility] Laureano Dougherty MD Laboratory Services - [address] [address] [address] [facility] [place] [address] [phone] Social History Tobacco Use Types Packs/Day Years Used Date Smoking Tobacco: Never Assessed Sex Assigned at Date Recorded Not on file documented as of this encounter Plan of Treatment Not on filedocumented as of this encounter Procedures Procedure Name Priority Date/Time Associated Diagnosis Comme nts CYTOPATHOLOGY Routine 08/01/2009 0:00 EST Results for this procedure are i n the results section . documented in this encounter Results CYTOPATHOLOGY (08/01/2009 0:00 EST) Component Value Ref Test [facility] Method Time Signature Pathology CYTOPATHOLOGY REPORT ? [facility] Report: ? [facility] Reports generated via electr onic interface contain original data; ? however they are lacking the format of the original report. ? Caution should be taken when reading/interpreting unformatted reports. ? Name: ? SEVEROCHAPARRO ? Accession #: ? [id number] ? : ? 1955 (Age: 54) ??F ?Collect Date: ? 08/01/2009 ? Location: ? [facility] ? Receive Date: ? 08/01/2009 ? Provider: ?LAUREANO DOUGHERTY MD ? Copy to: ? Specimen/Source: ? Pap Test, Cervix, ThinPrep Imaging System with manual ?? evaluation ? Last Menstrual Period: ? 1999 ? Other: ? HPVA - HPV testing requested if ASC-US on the current ThinPrep Pap test. ? SPECIMEN ADEQUACY ? Satisfactory for Eval uation ? - assessment of transformati on zone component not applicable ( e.g. atrophy, ? vaginal sample, hysterectomy ) ? GENERAL CATEGORIZATION ? Negative for Intraepi thelial Lesion or Malignancy ? Document reviewed and electr onically signed by: ? Daisha Cortez. Dea, S CT(ASCP) ? Report Date: ??11/25/ 2009 15:39 ? End of Report ? Specimen (Source) Anatomical Location Collection Method / Collectio n Time Received Time / Laterality Volume 08/01/2009 08/01/2009 Laureano Dougherty MD PATHOLOGY ORDERABLES Performing Organization Address City/State/ZIP Code Phon e Number [facility] [address] [place] [address] SERVICES [facility] [address] [place] [address] documented in this encounter Visit Diagnoses Not on filedocumented in this encounter
--- OUTSIDE RECORDS SUMMARY | 2022-07-31 01:29 | XMS_ITS | Encounter Summary ---
:1955 Author Organization [facility] [place] [address] Care Team Providers Name Role Phone Faye Dougherty MD Primary Care Provider Reason for Visit Reason Comments Follow-up Skin Check Encounter Details Date Type Department Care Team Description 03/31/2018 Office Visit Dermatology at [facility], Seborrh eic keratosis Raquel MARTINEZ [address] Kiet B DERMATOLOGY [place], [place] [phone] Social History Tobacco Use Types Packs/Day Years Used Date Smoking Tobacco: Never Smokeless Tobacco: Never Sex Assigned at Date Recorded Not on file documented as of this encounter Progress Notes [facility] MD - 03/31/2018 8:00 AM EDT Problem: Follow-up right cheek lesions Camilla follows up and has had a good response to the imiquimod cream applying this on a nightly basis 5 days a week, not on weekends, for the last 4 weeks. Physical examination reveals mild erythema over the entire treated area with some crusting and scaling clearly some lower sites. Assessment plan: Squamous proliferation right cheek 1. Good response so far. 2. Continue another 2 weeks then DC imiquimod cream. 3. Return to clinic 1 month for repeat assessment of her response. By then she will have been off ofthe cream for 2 weeks. 4. Her son is getting in May 28 in [facility] on she wants to have this cleared up by then CC: Faye Dougherty MD documented in this encounter Plan of Treatment Not on filedocumented as of this encounter Visit Diagnoses Diagnosis Seborrheic keratosis Other seborrheic keratosis documented in this encounter Care Teams Solution Specialist Relationship Specialty Start Date End Date Faye Dougherty MD PCP - General General Internal Medicine 01/27/[address] [place] [address] documented as of this encounter
[2022-07-31 07:48] LABS: HCT 40.1 % (36.0-46.0); HGB 13.5 g/dL (11.2-15.7); MCH 29.3 pg (27.0-33.0); MCHC 33.7 % (32.0-36.0); MCV 87 fL (80-95); MPV 9.2 fL (8.0-11.0); Platelet Count 267 10^3/uL (130-400); RBC 4.61 10^6/uL (3.93-5.22); RDW-SD 38.5 fL; WBC 5.77 10^3/uL (4.4-10.8)
[2022-07-31 08:07] LABS: ALT 27 U/L (14-59); AST 19 U/L (15-37); Albumin 3.6 g/dL (3.4-5.0); Alkaline Phosphatase 69 U/L (46-116); Anion Gap 7.3 mmol/L (3-11); BUN 19 mg/dL (7-18); Bilirubin, Total 0.5 mg/dL (0.2-1.0); CO2 28.7 mmol/L (21.0-32.0); CREATININE 0.9 mg/dL (0.55-1.02); Chloride 102 mmol/L (98-107); Estimated GFR 70.51 (mL/min/1.73m2); Glucose 132 mg/dL (74-106); Potassium 4.3 mmol/L (3.5-5.1); Sodium 138 mmol/L (136-145); Total Protein 7.7 g/dL (6.4-8.2)
--- NOTE | 2022-07-31 09:38 | DI.RAD_ITS ---
Exam(s) XR HIP RT COMPLETE AP PELVIS EXAM: XR HIP RT COMPLETE AP PELVIS CLINICAL HISTORY: RT hip pain, M25.551, osteopenia, M85.80, OA, M19.90. TECHNIQUE: 2D digital imaging was performed. COMPARISON: No exams were available for comparison FINDINGS: Two views: There is no evidence of pelvic nor hip fracture. There degenerative changes both hips mild moderate joint space narrowing and subarticular cysts in cha th femoral heads noted. Additional lateral view of the right hip reveals femoral head osteophytes. IMPRESSION: Significant degenerative changes both hips. Flow prominent symmetrical subarticular degenerative cys ts are noted in both femoral heads. DATA REPOSITORY: RADIATION DOSE DELIVERED:
[2022-07-31 19:51] LABS: Lab Add On Test DONE
[2022-07-31 19:58] LABS: Hemoglobin A1C 6.2 % (<5.7)
== END 2022-07-31 01:28 | disposition home or self-care (01) ==
PROVIDERS: PCP Student in an Organized Health Care Education/Training Program; Visit Provider Student in an Organized Health Care Education/Training Program
DX: E11.9 Type 2 diabetes mellitus without complications (principal); I10 Essential (primary) hypertension; R06.02 Shortness of breath; Z87.891 Personal history of nicotine dependence; R73.09 Other abnormal glucose; Z68.32 Body mass index [BMI] 32.0-32.9, adult; M16.0 Bilateral primary osteoarthritis of hip; M85.80 Other specified disorders of bone density and structure, unspecified site
CPT/HCPCS: 36415; 80053; 85027; 73502; 83036

== ENCOUNTER → 2022-08-07 00:52 | Outpatient (CLI) | payer BC, SELFPAY ==
--- OUTSIDE RECORDS SUMMARY | 2022-08-07 00:53 | XMS_ITS | Encounter Summary ---
:1955 Author Organization [facility] Address [address] [place] [address] Care Team Providers Name Role Phone Unavailable Primary Care Provider Unavailable Encounter Details Date Type Department Care Team Description 01/12/2001 Results Only [facility] - Shani Arias od, Dorcas Nguyen, GENETIC TECHNOLOGIST [address] [place] [phone] (Wo rk) Social History Tobacco Use Types [...] Component Value Ref Test Analysis Performed At [facility] Method Time Signature Pathology CYTOPATHOLOGY REPORT [facility] Report: [facility] Reports generated via electronic interface contain original data; however they are lacking the format of the original report. Caution should be taken when reading/interpreting unformatte d reports. Name: ? CHAPARRO NUÑEZ ? Accession #: ? [id number] : ? 1955 (Age: 45) ??F ?Collect Date: ? 01/12/2001 Location: ? [facility] ? Receive Date: ? 01/13/2001 Provider: ?DORCAS CARNEY GENETIC TECHNOLOGIST Copy to: ? Specimen/Source: ?Conventional Pap Test, [...] / Laterality Volume 01/12/2001 01/13/2001 Dorcas Carney GENETIC TECHNOLOGIST PATHOLOGY ORDERABLES Performing Organization Address City/State/ZIP Code Phon e Number [facility] [address] [place] [address] SERVICES [facility] [address] [place] [address] documented in this encounter Visit Diagnoses Not on filedocumented in this encounter
--- OUTSIDE RECORDS SUMMARY | 2022-08-07 00:53 | XMS_ITS | Encounter Summary ---
:1955 Author Organization [facility] [place] [address] Care Team Providers Name Role Phone Faye Dougherty MD Primary Care Provider Reason for Visit Reason Comments Medication Refill Encounter Details Date Type Department Care Team Description 04/25/2018 Refill Dermatology at [facility] Bk Castro MD [address] [facility] K[address] [place] [address] DERMATOLOGY [phone] [place], [place] [address] (Wo rk) Social History Tobacco Use Types Packs/Day Years Used Date Smoking Tobacco: Never Smokeless Tobacco: Never Sex Assigned at Date Recorded Not on file documented as of this encounter Plan of Treatment Not on filedocumented as of this encounter Visit Diagnoses Not on filedocumented in this encounter Care Teams Pocket Secretary Assembler Relationship Specialty Start Date End Date Faye Dougherty MD PCP - General General Internal Medicine 01/27/18 [address] [place] [address] documented as of this encounter
--- OUTSIDE RECORDS SUMMARY | 2022-08-07 00:53 | XMS_ITS | Clinical Summary ---
:[address] [facility] Address [address] [place] [address] Care Team Providers Name Role Phone Faye [...] Addre ss Type Group [employer] [id number] 2017-Present [address] [address] [place] [address] Care Teams Land Acquisition Analyst Relationship Specialty Start Date End Date Faye Dougherty MD PCP - General 09/13/[address] [place] [address]
--- OUTSIDE RECORDS SUMMARY | 2022-08-07 00:53 | XMS_ITS | Encounter Summary ---
:1955 Author Organization [facility] Address [address] [place] [address] Care Team Providers Name Role Phone aFye Dougherty MD Primary Care Provider Encounter Details Date Type Department Care Team Description 07/09/2021 Lab Requisition [facility] Faye Dougherty, Adi hernandez for other Pathology & MD general examination Laboratory Medicine [address] [place] [phone] Social History Tobacco Use Types Packs/Day Years [...] (HPV) DETECTION-HIGH RISK TYPES (07/08/2021 10:45 EDT) [facility] Method Time Signature Human Negative Negative 07/17/2021 [facility] Papillomavirus 7:59 [facility] CENTER (HPV) LABORATORY Detection-High SERVICES Types Comment: No E6 or E7 mRNA is detected fr om HPV types 16,18,31,33,35,39,45,51,52,56,58,59,66, and 68 by metal cans supervisor mediated amplification. Specimen Anatomical Collection Method Collection Time Receive d Time (Source) Location / / Volume Laterality Pap Test (Cervix 07/08/2021 10:45 021 and/or EDT 12:01 EDT Endocervix) Faye Dougherty MD MICROBIOLOGY - GENERAL ORDER YOHANNES Performing Organization Address City/State/ZIP Code Phon e Number [facility] [address] [place] [address] SERVICES PAP TEST (07/08/2021 10:45 EDT) Component Value Ref Test Analysis Performed At [facility] Range Method Time Signature Specimens A. Cervix and/or 07/17/2021 [facility] Endocervix , 7:59 [facility] ThinPrep Imaging LABORATORY System with SERVICES Manual Evaluation Specimen Satisfactory for 07/17/2021 [facility] Adequacy Evaluation - 7:59 [facility] transformation LABORATORY zone component SERVICES present General Negative for 07/17/2021 [facility] Categorization intraepithelial 7:59 T CENTER lesion or LABORATORY malignancy SERVICES Descriptive Reactive cellular 07/17/2021 [facility] AL Diagnosis changes 7:59 [facility]ENTER associated with LABORATORY inflammation SERVICES present (includes repair). Attestation By the signature below, the attending physician certifies that they have personally conducted a gross and/or microscopic 1 09/16/2020 [facility] Electronically examination of the described specimens and rendered or confirmed the above diagnosis. 7:59 [facility] CENTER signed by DAWSON Mckenzie, RANDEE Floyd MD on 07/17 at 0759 Clinical History See below 07/17/2021 [facility] 7:59 [facility] CENTER LABORATORY SERVICES HPV The result for the Human Pap illomavirus (HPV) Detection-High Risk Types is Negative. No E6 or E7 mRNA is detected from HPV types 16,18,31,33,35,39,45,51,52,56,58,59,66, and 68 by metal cans supervisor mediated 07/17/2021 [facility] amplification.Testing was pe rformed on specimen [id number] and was resulted on 07/17/2021 0720 EDT by VERONIQUE, LAB INSTRUMENT RESULTS IN 7:59 [facility] CENTER LABORATORY SERVICES Performing Lab [facility] 07/17/2021 [facility] 7:59 [facility] LABORATORY SERVICES Scanned Images 07/17/2021 [facility] 7:59 [facility] CENTER LABORATORY SERVICES Specimen Anatomical Collection Method Collection Time Receive d Time (Source) Location / / Volume Laterality Pap Test (Cervix 07/08/2021 10:45 021 and/or EDT 11:48 EDT Endocervix) Faye Dougherty MD PATHOLOGY ORDERABLES Performing Organization Address City/State/ZIP Code Phon e Number [facility] [address] [place] [address] SERVICES documented in this encounter Visit Diagnoses Diagnosis Encounter for other general examination documented in this encounter Care Teams Quality Control Representative Relationship Specialty Start Date End Date Faye Dougherty MD PCP - General 09/13/19 [address] [facility] [place] [place] [address] documented as of this encounter
--- OUTSIDE RECORDS SUMMARY | 2022-08-07 00:53 | XMS_ITS | Encounter Summary ---
:1955 Author Organization [facility] Address [address] [place] [address] Care Team Providers Name Role Phone Unavailable Primary Care Provider Unavailable Encounter Details Date Type Department Care Team Description 08/01/2009 Orders Only [facility] Laureano Dougherty MD Laboratory Services - [address] [address] [address] [place] [address] [phone] Social History Tobacco Use Types Packs/Day Years [...] Component Value Ref Test Analysis Performed At [facility] Method Time Signature Pathology CYTOPATHOLOGY REPORT ? [facility] Report: ? [facility] Reports generated via electr onic interface contain original data; ? however they are lacking the format of the original report. ? Caution should be taken when reading/interpreting unformatted reports. ? Name: ? SEVEROCHAPARRO ? Accession #: ? [id number] ? : ? 1955 (Age: 54) ??F [...] Organization Address City/State/ZIP Code Phon e Number [facility] [address] [place] [address] SERVICES [facility] [address] [place] [address] documented in this encounter Visit Diagnoses Not on filedocumented in this encounter
--- OUTSIDE RECORDS SUMMARY | 2022-08-07 00:53 | XMS_ITS | Encounter Summary ---
:1955 Author Organization [facility] Address [address] [place] [address] Care Team Providers Name Role Phone Unavailable Primary Care Provider Unavailable Encounter Details Date Type Department Care Team Description 07/14/2017 Results Only [facility]- Laureano Ramos MD [phone] [address] [place], [place] [address] (Wo rk) Social History Tobacco Use Types [...] Component Value Ref Test Analysis Performed At [facility] Range Method Time Signature Pathology CYTOPATHOLOGY REPORT [facility] MED[facility] AL Report: CENTER Reports generated via electronic interface contain origina l data; LABORATORY however they are lacking the format of the original report. SERVICES Caution should be taken when reading/interpreting unformatte d reports. Name: ? CHAPARRO NUÑEZ ? Accession #: ? [id number] : ? 1955 (Age: 7 1) ??F [...] Organization Address City/State/ZIP Code Phon e Number [facility] [address] [place] [address] SERVICES documented in this encounter Visit Diagnoses Not on filedocumented in this encounter
--- OUTSIDE RECORDS SUMMARY | 2022-08-07 00:53 | XMS_ITS | Encounter Summary ---
:1955 Author Organization [facility] Address [address] [place] [address] Care Team Providers Name Role Phone Faye Dougherty MD Primary Care Provider Encounter Details Date Type Department Care Team Description 07/03/2020 Lab Requisition [facility] Medical [place] Faye Dougherty, Adi hernandez for other Pathology & MD general examination Laboratory Medicine [address] [place] [id number] Social History Tobacco Use Types Packs/Day Years [...] (HPV) DETECTION-HIGH RISK TYPES (07/02/2020 11:15 EDT) [facility] gist Method Time Signature Human Negative Negative 08/07/2020 [facility] MEDICAL Papillomavirus 8:05 EST CENTER (HPV) LABORATORY Detection-High SERVICES Types Comment: No E6 or E7 mRNA is detected fr om HPV types 16,18,31,33,35,39,45,51,52,56,58,59,66, and 68 by die try out worker mediated amplification. Specimen Anatomical Collection Method Collection Time Receive d Time (Source) Location / / Volume Laterality Pap Test (Cervix 07/02/2020 11:15 11/24/2 020 and/or EDT 12:17 EST Endocervix) Faye Dougherty MD MICROBIOLOGY - GENERAL ORDER YOHANNES Performing Organization Address City/State/ZIP Code Phon e Number [facility] [address] [place] [address] SERVICES PAP TEST (07/02/2020 11:15 EDT) Component Value Ref Test Analysis Performed At [facility] Range Method Time Signature Specimens A. Cervix and/or 07/10/2020 [facility] Endocervix , 9:29 [facility] ThinPrep Imaging LABORATORY System with SERVICES Manual Evaluation Specimen Satisfactory for 07/10/2020 [facility] Adequacy Evaluation - 9:29 [facility] transformation LABORATORY zone component SERVICES present General Epithelial Cell 07/10/2020 [facility] Categorization Abnormality 9: [facility] LABORATORY SERVICES Descriptive Squamous Cell 07/10/2020 [facility] Diagnosis Abnormality - 9:29 [facility] Atypical LABORATORY squamous cells, SERVICES undetermined significance (ASC-US). Educational [facility] recommends following A SCCP's 2012 Updated Consensus Guidelines for the Management of Abnormal Cervical Cancer Screening Tests and Cancer Precursors (JLGTD, 2013; 17(5):S1-S27). Consensus guidelines are available online at www.asccp.org. 07/10/2020 [facility] DICAL Comments 9:29 [facility] LABORATORY SERVICES Attestation By the signature below, the attending physician certifies that they have personally conducted a gross and/or microscopic 1 [facility] Electronically examination of the described specimens and rendered or confirmed the above diagnosis. 9:29 [facility] signed by Alisa Wheeler MD on 07/10/2020 at 0929 Clinical History See below 07/10/2020 [facility] 9:29 [facility] LABORATORY SERVICES Performing Lab [facility] 07/10/2020 [facility] AL LAB 9:29 [facility] LABORATORY SERVICES Scanned Images 07/10/2020 [facility] 9:29 [facility] LABORATORY SERVICES Specimen Anatomical Collection Method Collection Time Receive d Time (Source) Location / / Volume Laterality Pap Test (Cervix 07/02/2020 11:15 10/21/2 020 and/or EDT 10:03 EDT Endocervix) Faye Dougherty MD PATHOLOGY ORDERABLES Performing Organization Address City/State/ZIP Code Phon e Number [facility] [address] [place] [address] SERVICES documented in this encounter Visit Diagnoses Diagnosis Encounter for other general examination documented in this encounter Care Teams Manager Balance Relationship Specialty Start Date End Date Faye Dougherty MD PCP - General 09/13/[address] [place] [address] documented as of this encounter
--- OUTSIDE RECORDS SUMMARY | 2022-08-07 00:53 | XMS_ITS | Encounter Summary ---
:1955 Author Organization [facility] [place] [address] Care Team Providers Name Role Phone Faye Dougherty MD Primary Care Provider Encounter Details Date Type Department Care Team Description 02/28/2018 Refill Dermatology at [facility] Genesis Lara, SEO ANALYST [address] [place] [address] Social History Tobacco Use Types Packs/Day Years Used Date Smoking Tobacco: Never Smokeless Tobacco: Never Sex Assigned at Date Recorded Not on file documented as of this encounter Plan of Treatment Not on filedocumented as of this encounter Visit Diagnoses Not on filedocumented in this encounter Care Teams Clean Rice Broker Relationship Specialty Start Date End Date Faye Dougherty MD PCP - General General Internal Medicine 01/27/18 [address] [place] [address] documented as of this encounter
--- OUTSIDE RECORDS SUMMARY | 2022-08-07 00:53 | XMS_ITS | Encounter Summary ---
:1955 Author Organization [facility] [address] Care Team Providers Name Role Phone Faye Dougherty MD Primary Care Provider Reason for Visit Reason Comments Follow-up Skin Check Encounter Details Date Type Department Care Team Description 02/28/2018 Office Visit Dermatology at [facility], Seborrh eic keratosis Raquel MARTINEZ [address] Kiet B DERMATOLOGY [place], [place] [phone] Social History Tobacco Use Types Packs/Day Years [...] cream, 12 packets, to her [employer] [place] with 1 refill. 3. Return to clinic in 1 month for repeat check CC: Faye Dougherty MD documented in this encounter Plan of Treatment Not on filedocumented as of this encounter Visit Diagnoses Diagnosis Seborrheic keratosis Other seborrheic keratosis documented in this encounter Care Teams Box Gluer Relationship Specialty Start Date End Date Faye Dougherty MD PCP - General General Internal Medicine 01/27/[address] [place] [address] documented as of this encounter
--- OUTSIDE RECORDS SUMMARY | 2022-08-07 00:53 | XMS_ITS | Encounter Summary ---
:1955 Author Organization [facility] [place] [address] Care Team Providers Name Role Phone Faye Dougherty MD Primary Care Provider Reason for Visit Reason Comments Follow-up right cheek Encounter Details Date Type Department Care Team Description 04/29/2018 Office Visit Dermatology at [facility], History of basal cell carcinoma; Raquel MARTINEZ Seborrheic keratosis [address] Kiet B DERMATOLOGY [place], [place] [phone] Social History Tobacco Use Types Packs/Day Years Used Date Smoking Tobacco: Never Smokeless Tobacco: Never Sex Assigned at Date Recorded Not on file documented as of this encounter Progress Notes [facility] MD - 04/29/2018 10:45 AM EDT Problem: 1. Follow-up imiquimod cream therapy 6 weeks applied to squamous proliferation right cheek February 2018 2. History BCCA right tip of nose June 14, 1995 Camilla follows up and is doing well. The erythema has finally resolved from her right cheek. Examination of the face or cheek or nose today's benign. She has an indurated erythematous patch on the right arm where she thinks may been bitten by a brown recluse spider it is getting better now after a one-week course of antibiotics prescribed by her PCP Assessment plan: Squamous proliferation right cheek 1. Now resolved 2. Patient's son is getting May 28 in [facility] and wished her well for that 3. Return to clinic here in 1 year for repeat check CC: Faye Dougherty MD documented in this encounter Plan of Treatment Not on filedocumented as of this encounter Visit Diagnoses Diagnosis History of basal cell carcinoma Personal history of other malignant neop lasm of skin Seborrheic keratosis Other seborrheic keratosis documented in this encounter Care Teams Manager Of Regulatory Affairs Relationship Specialty Start Date End Date Faye Dougherty MD PCP - General General Internal Medicine 01/27/[address] [place] [address] documented as of this encounter
--- OUTSIDE RECORDS SUMMARY | 2022-08-07 00:53 | XMS_ITS | Encounter Summary ---
:1955 Author Organization [facility] Address [address] [place] [address] Care Team Providers Name Role Phone Unavailable Primary Care Provider Unavailable Encounter Details Date Type Department Care Team Description 09/09/2010 Results Only [facility] Laureano Dougherty MD Laboratory Services - [address] [place] [id number] [address] [facility] [place] [address] [phone] Social History Tobacco Use Types Packs/Day Years [...] Ref Test Analysis Performed At [facility] Method Time Signature Pathology CYTOPATHOLOGY REPORT ? ARIAS Report: ? [facility] Reports generated via electr onic interface contain original data; ? however they are lacking the format of the original report. ? Caution should be taken when reading/interpreting unformatted reports. ? Name: ? SEVEROCHAPARRO ? Accession #: ? [id number] ? : ? 1955 (Age: 55) ??F [...] e Number [facility] [address] [place] [address] SERVICES [facility] [address] [place] [address] documented in this encounter Visit Diagnoses Not on filedocumented in this encounter
--- OUTSIDE RECORDS SUMMARY | 2022-08-07 00:53 | XMS_ITS | Encounter Summary ---
:1955 Author Organization [facility] [place] [address] Care Team Providers Name Role Phone Faye Dougherty MD Primary Care Provider Reason for Visit Reason Comments Follow-up Skin Check Encounter Details Date Type Department Care Team Description 02/10/2018 Office Visit Dermatology at [facility], Seborrh eic keratosis Raquel MARTINEZ [address] Kiet B DERMATOLOGY [place], [place] [phone] Social History Tobacco Use Types Packs/Day Years [...] right cheek. Her son is getting in [facility] on a farm May and shewants [...] keratosis documented in this encounter Care Teams Swedish Masseuse Relationship Specialty Start Date End Date Faye Dougherty MD PCP - General General Internal Medicine 01/27/[address] [place] [address] documented as of this encounter
--- OUTSIDE RECORDS SUMMARY | 2022-08-07 00:53 | XMS_ITS | Encounter Summary ---
:1955 Author Organization [facility] Address [address] [place] [address] Care Team Providers Name Role Phone Faye Dougherty MD Primary Care Provider Encounter Details Date Type Department Care Team Description 04/22/2020 Lab Requisition [facility] Awais Banuelos for Pathology & MD Jett screening for Laboratory Medicine [address] malignant neoplasm - [place], [place] of colon [address] [facility] [address] [place], [place] [address] Social History Tobacco Use Types Packs/Day Years Used Date Smoking Tobacco: Never Assessed Sex Assigned at Date Recorded Not on file documented as of this encounter Plan of Treatment Not on filedocumented as of this encounter Procedures Procedure Name Priority Date/Time Associated Diagnosis Comme nts SURGICAL PATHOLOGY Today 04/22/2020 13:13 Encounter for Resu lts for this EDT screening for procedure are in malignant neoplasm the resul ts of colon section. documented in this encounter Results SURGICAL PATHOLOGY (04/22/2020 13:13 EDT) Component Value Ref Test Analysis Performed At [facility] Range Method Time Signature Final A. COLON, DESCENDING, POLYPS, BIOPSY: [facility] Diagnosis - Sessile serrated adenoma(s). 10:47 EDT CENTER - Tubular adenoma. LABORATORY SERVICES B. COLON, SIGMOID, POLYPS, BIOPSY: -Tubular adenomas. - Hyperplastic polyp. Attestation There was 04/24/2020 [facility] Elect ronically significant 10:47 EDT CENTER signed b y u resident/fellow LABORATORY Raffi Solano MD involvement in SERVICES on 08/2020 at the diagnostic 1047 evaluation of this case. By the signature below, the attending physician certifies that they have personally conducted a gross and/or microscopic examination of the described specimens and rendered or confirmed the above diagnosis. Clinical Colorectal 04/24/2020 [facility] History screening 10:47 [facility] LABORATORY SERVICES Gross A. 04/24/2020 [facility] Description Received in formalin nena d with proper patient identification (initials D, M) and 1. Descending colon polyps are a foy-brown focally white sessile polypoid tissue (0.9 x 0.7 x 0.7 cm) and fifteen t 10:47 EDT CENTER an-brown tissues (0.9 x 0.5 x 0.4 cm to 0.2 x 0.1 x 0.1 cm). The polypoid tissue is trisected and entirely submitted in A1, the largest tissue is trisected and entirely submitted in A2, and the remaining specimen is submitted intact in A3-A7. LABORATORY SERVICES B. Received in formalin nena d with proper patient identification (initials D, M) and 2. Sigmoid polyps are three foy tissues (0.3 x 0.2 x 0.2 cm to 0.2 x 0.2 x 0.1 cm). Entirely submitted in B1. Jonny Dick 04/23/2020 8:27 Resident/Golden Nelson 04/24/2020 [facility] ME STORY w: MD Ambrocio 10:47 [facility] LABORATORY SERVICES Performing Lab [facility] 04/24/2020 [facility] AL LAB 10:47 [facility] LABORATORY SERVICES Scanned Images 04/24/2020 [facility] 10:47 [facility] LABORATORY SERVICES Specimen Anatomical Collection Method Collection Time Receive d Time (Source) Location / / Volume Laterality Tissue ENTIRE SIGMOID 04/22/2020 13:13 0 COLON / Unknown EDT 23:54 EDT Tissue specimen ENTIRE SIGMOID 04/22/2020 13:13 2019 (specimen) COLON / Unknown EDT 23:54 EDT Jett Banuelos MD PATHOLOGY ORDERABLES Performing Organization Address City/State/ZIP Code Phon e Number [facility] [address] [place] [address] SERVICES documented in this encounter Visit Diagnoses Diagnosis Encounter for screening for malignant ne oplasm of colon Special screening for malignant neoplasm s, colon documented in this encounter Care Teams Manager Supplier Relationship Specialty Start Date End Date Faye Dougherty MD PCP - General 09/13/[address] [place] [address] documented as of this encounter
--- OUTSIDE RECORDS SUMMARY | 2022-08-07 00:53 | XMS_ITS | Encounter Summary ---
:1955 Author Organization [facility] [place] [address] Care Team Providers Name Role Phone Faye Dougherty MD Primary Care Provider Reason for Visit Reason Comments Follow-up Skin Check Encounter Details Date Type Department Care Team Description 01/27/2018 Office Visit Dermatology at [facility], Seborrh eic keratosis Raquel MARTINEZ [address] Kiet B DERMATOLOGY [place], [place] [phone] Social History Tobacco Use Types Packs/Day Years [...] keratosis documented in this encounter Care Teams Prosthodontist/Owner Relationship Specialty Start Date End Date Faye Dougherty MD PCP - General General Internal Medicine 01/27/[address] [place] [address] documented as of this encounter
--- OUTSIDE RECORDS SUMMARY | 2022-08-07 00:53 | XMS_ITS | Encounter Summary ---
:1955 Author Organization [facility] Address [address] [place] [address] Care Team Providers Name Role Phone Unavailable Primary Care Provider Unavailable Encounter Details Date Type Department Care Team Description 11/07/2013 Results Only [facility] Laureano Dougherty MD Laboratory Services - [address] [place] [address] [address] [facility] [place] [address] [phone] Social History Tobacco Use Types Packs/Day Years [...] Component Value Ref Test Analysis Performed At [facility] Method Time Signature Pathology CYTOPATHOLOGY REPORT [facility] Report: [facility] Reports generated via electronic interface contain original data; however they are lacking the format of the original report. Caution should be taken when reading/interpreting unformatte d reports. Name: ? CHAPARRO NUÑEZ ? Accession #: ? [id number] : ? 1955 (Age: 58) ??F ?Collect [...] Address City/State/ZIP Code Phon e Number [facility] [address] [place] [address] SERVICES [facility] [address] [place] [address] documented in this encounter Visit Diagnoses Not on filedocumented in this encounter
--- NOTE | 2022-08-07 10:17 | DI.DEXA_ITS ---
Exam(s) XR DEXA BONE DENSITY W/WO TITA EXAM: XR DEXA BONE DENSITY W/WO TITA CLINICAL HISTORY: evaluate bone density Z78.0 MENOPAUSAL Z87.891 M85.80 DISORDER OF BONE TECHNIQUE: COMPARISON: No exams were available for comparison FINDINGS: DEXA scan was performed according to the usual protocol. Please see the accompanying data sheets. Findings for the left hip scanning are T-score -0.1 and left femoral neck T-score -0.6. Prior examin ation of October 2013 showed left hip T-score 0.1. Lumbar spine scanning shows T-score -0.8, prior examination of 2013 showed lumbar T-score -0.9. Left forearm scanning shows T-score -1.5, prior examination of 2013 showed T-score -1.1. IMPRESSION: The measurements are consistent with osteopenia according to the WHO criteria. The vertebral scanogram shows no evidence of a vertebral compression fracture. RADIATION DOSE DELIVERED: Total DLP
== END ==
PROVIDERS: PCP Student in an Organized Health Care Education/Training Program; Visit Provider Student in an Organized Health Care Education/Training Program
DX: M25.551 Pain in right hip (principal); M85.89 Other specified disorders of bone density and structure, multiple sites; Z78.0 Asymptomatic menopausal state; Z87.891 Personal history of nicotine dependence; Z13.820 Encounter for screening for osteoporosis
CPT/HCPCS: 77080

== ENCOUNTER → 2022-08-31 01:19 | Outpatient (CLI) | payer BC, SELFPAY ==
--- NOTE | 2022-08-31 07:00 | DI.MAMMO_ITS ---
Exam(s) MAMMO SCREENING EXAM: MAMMO SCREENING CLINICAL HISTORY: screening,Z12.39 TECHNIQUE: Mammograms were interpreted according to the usual protocol including computer analysis w [employer] CAD system, tomosynthesis and C-view imaging. COMPARISON: 2013 through 2019 FINDINGS: The breasts are composed of scattered fibroglandular densities, Breast Density category B. No suspicious masses or suspicious microcalcifications are seen. No skin thickening or abnormal axillary lymph nodes are seen. There has been no significant change from prior exams. IMPRESSION: BI-RADS Category 1, Negative mammogram Yearly screening mammography is recommended. Breast Density - Category B, scattered fibroglandular densities. A negative radiographic report should not delay biopsy if a dominant or clinically suspicious mass is present. Up to ten percent of cancers are not identified on mammography. A negative report may reinforce clinical impression. Adenosis and dense breasts may obscure an underlying neoplasm. False positive reports average 6 to 10%. Patient will receive a letter notifying them of these results.
== END ==
PROVIDERS: PCP Student in an Organized Health Care Education/Training Program; Visit Provider Student in an Organized Health Care Education/Training Program
DX: Z12.31 Encounter for screening mammogram for malignant neoplasm of breast (principal)
CPT/HCPCS: 77063; 77067

== ENCOUNTER → 2023-09-01 01:56 | Outpatient (CLI) | payer BC, SELFPAY | PROVIDERS: PCP Student in an Organized Health Care Education/Training Program; Visit Provider Student in an Organized Health Care Education/Training Program | DX: Z12.31 Encounter for screening mammogram for malignant neoplasm of breast (principal) | CPT/HCPCS: 77063; 77067 ==

== ENCOUNTER 2023-09-28 08:24 | Day surgery (SDC) | payer BC, SELFPAY ==
--- NOTE | 2023-09-27 17:36 | W.ANESPRE ---
General Info Date of Service Date Performed: 09/28/23 Height: 5 ft 5 in Weight: 95.708 kg Body Mass Index (BMI): 35.1 Surgical Procedure: Operation Date: 09/28/23 09:35 Proposed Procedure Side Surgeon p Colonoscopy Luis Eduardo Brown MD Meds Allergies and Home Medications Allergies Allergy/AdvReac Type Severity Reaction Status Date / Time No Known Allergies Allergy Verified 09/28/23 08:42 Home Medication Medication Instructions Recorded calcium carbonate 500 mg-vitamin 1 ea PO DAILY 11/07/13 D3 10 mcg (400 unit) tablet (Calcium 500 + D) bisacodyl 5 mg tablet,delayed 5 mg PO ONCE Colonoscopy Bowel 09/14/23 release (Dulcolax (bisacodyl)) Prep #4 tabs polyethylene glycol 3350 17 238 g PO ONCE Colonoscopy Bowel 09/14/23 gram/dose oral powder Prep #238 grams Current Visit Medications: Current Medications Generic Name Dose Route Start Last Admin Trade Name Freq PRN Reason Stop Dose Admin Ringer's Solution 1,000 mls @ 80 mls/hr 09/28/23 06:00 IV 09/28/23 23:59 INFUSION STACIA IV Miscellaneous Supplies 1 each 09/28/23 06:00 Iv Access IV 09/28/23 23:59 DIRECTED STACIA Sodium Chloride 0 ml 09/28/23 06:00 Normal Saline Flush 10 Ml Syr IV 09/28/23 23:59 PRN PRN Sodium Chloride 0 ml 09/28/23 06:00 Normal Saline 10 Ml Vial IJ 09/28/23 23:59 DIRECTED PRN Sterile Water 0 ml 09/28/23 06:00 Water,Injection,Sterile 10 Ml Vial IJ 09/28/23 23:59 DIRECTED PRN PFSH Active Problems Active Problems: Problem Status Onset Code Osteopenia M85.80 Osteopenia after menopause M85.80, Z78.0 Hip pain, right M25.551 Diabetes E11.9 BMI 32.0-32.9,adult Z68.32 Tubular adenoma of colon D12.6 Medical History Medical History Cellulitis of right upper extremity (03/25/18) s/p outdoor work, probable insect bite but no identification. Mildly raised, well-demarcated plaque with erytthema which slowly widened over 5 days (coworkers kaylyn line @ initial erythema). Mild indur dark spot, but no clear bite or incision terri. Essential hypertension Haworth cardiac risk <10% in next 10 years (07/14/17) 2.5% H/O seborrheic keratosis (02/10/18) R Cheek History of tobacco use disorder (02/25/12) 2 ppd quit Osteopenia Left forearm T score -0.1 Sessile colonic polyp Surgical History Surgical History fx right elbow History of colonoscopy Tobacco Smoking/Tobacco Use Status: Former Tobacco Use Passive smoking exposure: No Second hand exposure: No Alcohol Alcohol Intake: current Alcohol intake frequency: 0-2 drinks per day Alcohol type: wine Substance Use Substance use: Never Substance use type: does not use Vital Signs and Lab Results Vital Signs Most Recent Vital Signs in EMR: Temp Pulse Resp BP Pulse Ox 36.0 C L 82 20 134/81 95 09/28/23 08:30 09/28/23 08:30 09/28/23 08:30 09/28/23 08:30 09/28/23 08:30 Lab Results Blood Type / Crossmatch: No Data to Display Complete Blood Count: No Data to Display Complete Metabolic Panel: No Data to Display Liver Function Panel: No Data to Display Coagulation Panel: No Data to Display Cardiac Panel: No Data to Display Arterial Blood Gas: No Data to Display Venous Blood Gas: No Data to Display Pancreas Panel: No Data to Display Thyroid Panel: No Data to Display Infectious Disease: No Data to Display Blood Cultures: No Data to Display Toxicology Panel: No Data to Display Anesthesia Assessment and Plan Anesthesia History Personal History: No History of Anesthesia Complications Family History: No Family History of Anesthesia Complications Exercise Tolerance Exercise Tolerance: Metabolic Equivalents>4 Cardiac & Pulmonary Exam Cardiac Exam: Normal S1/S2 Heart Sounds Pulmonary Exam: Clear Bilateral Breath Sounds Implantable Cardiac Device Does patient have a Pacemaker or an ICD?: No Airway Exam Known Difficult Airway: No Mallampati Class: 3 Mouth Opening: Normal (> 3cm) Thyromental Distance: Greater than 3 cm Neck Range of Motion: Full ROM Neck Circumference: Normal Teeth Condition: Normal Dentition ASA Classification ASA Score: ASA 2 Emergency Case?: No NPO Status NPO Status: NPO Clears >2 hours, Solids >8 hours Anesthesia Plan Resuscitation Status: Full Code Anesthesia Technique: General Anesthesia Airway Planned: Natural Airway Monitors Used: Standard Monitors Preoperative Comments:: 68 yo female for colo. Sig PMHx: former smoker (quit ), occ EtOH. Previous Anes: - colo, prop, natural airway, no issues.
[2023-09-28 08:30] VITALS: BP 134/81; PULSE 82; RESP 20; TEMP 36; O2SAT 95
[2023-09-28 08:50] VITALS: BMI 35.1
[2023-09-28] MEDS: Lactated Ringers 1,000 ML 80 ML IV (08:55)
--- NOTE | 2023-09-28 09:24 | W.COLOREPORT ---
Date of service: 09/28/23 Time of Service: 09:51 Colonoscopy Report Procedure Description: PROCEDURES PERFORMED: 1. Colonoscopy with hot snare polypectomy PREOPERATIVE DIAGNOSIS: Surveillance colonoscopy POSTOPERATIVE DIAGNOSIS: Colon polyps, grade 2 internal hemorrhoids SURGEON: Tarah Brown MD INDICATION for procedure: The patient is a 68-year-old woman due for surveillance colonoscopy because of a history of sessile serrated polyps. FINDINGS: Normal terminal ileum. In the transverse colon a 7-10 mm carpet?like flat polyp was seen and removed with hot snare technique. No other polyps were noted. No evidence of regrowth at previous tattoo site. No diverticular disease seen. Grade 2 internal hemorrhoids noted. SURVEILLANCE interval/FOLLOW-UP: 3 years because of the history and the findings today. SPECIMENS: yes EBL: Minimal COMPLICATIONS: None QUALITY of prep: Excellent Procedure in detail: The patient gave written consent and was in agreement with the indications, the potential risks as well as the benefits of the procedure. They taken to the endoscopy suite and laid in the left lateral decubitus position. A timeout was performed and anesthesia was administered which was tolerated well. I started the procedure. Digital rectal and visual examination was performed and grossly within normal limits. A well-lubricated flexible colonoscope was then introduced and passed without any notable difficulty all the way to the cecum identified by the ileocecal valve and the appendiceal orifice. The terminal ileum was briefly intubated and looked normal. The scope was then slowly withdrawn with the above-noted findings. The patient tolerated the procedure well and was taken to the PACU in hemodynamically stable condition.
--- NOTE | 2023-09-28 09:44 | BOWEL_PTH ---
PATIENT: Camilla Nuñez LOC: [facility] U#:[id number] AGE/SX: 68/F ROOM: RE09/28/[address]: Luis Eduardo Brown : 1955 BED: DIS: 09/28/2023 SPEC #: [id number] RECD: 09/28/23 12:40 STATUS: TYLER REArin #: [id number] CAIN: 09/28/23 09:[address]: Luis Eduardo Brown DEPT: Surgical Specimen RECD BY: Yolanda Luis ENTERED: 09/28/23 12:40 SP TYPE: Bowel OTHR DR: Bia García DO Tissues: 1 - BIOPSY BOWEL Procedures: GROSS AND MICRO LEVEL 4 Comments: [id number]
[2023-09-28 09:55] VITALS: BP 113/68; PULSE 79; RESP 16; TEMP 36.5; O2SAT 96
--- NOTE | 2023-09-28 10:01 | W.PM.DSUDISC ---
Date of service: 09/28/23 Time of Service: 10:01 Discharge Plan Disposition Patient Disposition: Home Condition: Good Discharge Details Attending Provider: Luis Eduardo Brown Primary Care Provider: Bia García Home Meds and New Rx's Prescriptions: No Action bisacodyl [Dulcolax (bisacodyl)] 5 mg tablet,delayed release (DR/EC) 5 mg PO ONCE Qty: 4 0RF Rx Instructions: Colonoscopy Bowel Prep- Per Instructions polyethylene glycol 3350 17 gram/dose powder 238 g PO ONCE Qty: 238 0RF Rx Instructions: Colonoscopy Bowel Prep- Per Instructions calcium carbonate-vitamin D3 [Calcium 500 + D] 1 EACH tablet 1 ea PO DAILY Discharge Instructions Additional Instructions: FINDINGS: Another medium?size polyp was found today and removed. You do not need to worry about this. This is why we do the colonoscopies. Mild hemorrhoidal disease was found today. This is a very common condition, benign and nothing needs to be done about it as long as you do not have symptoms from it. He should do another colonoscopy in 3 years. Stand Alone Forms: Colonoscopy Post Instructions Activity:: Activity as Tolerated Diet:: As Tolerated Discharge Orders Discharge Orders: Discharge Order (Routine); Ordered 09/28/23 Ordered By: Luis Eduardo Brown
--- NOTE | 2023-09-28 10:02 | W.ANESPOSTOP ---
Postoperative Evaluation Date, Time and Location Date Performed: 09/28/23 Time Performed: 10:02 Patient Location: Day Surgery Unit Vital Signs Most Recent Imported Vital Signs: Most Recent Vital Signs Temp Pulse Resp BP Pulse Ox 36.5 C 79 16 113/68 96 09/28/23 09:55 09/28/23 09:55 09/28/23 09:55 09/28/23 09:55 09/28/23 09:55 Pain Score Most Recent Pain Score: Most Recent Pain Score Pain Level 0 09/28/23 09:55 Assessment Mental Status: Awake (Alert & Oriented to Patient Baseline) Airway and Respiratory Function: Patent airway with normal (patient baseline) respiratory exam Cardiovascular Function: Hemodynamically Stable Hydration Status: Adequately Hydrated Nausea & Vomiting: No Nausea or Vomiting Pain: Pt. Denies Any Pain Peripheral Nerve Block: Patient did not receive a nerve block
[2023-09-28 10:11] VITALS: BP 112/67; PULSE 67; RESP 16; TEMP 36.6; O2SAT 96
== END 2023-09-28 10:38 | disposition home or self-care (01) ==
PROVIDERS: PCP Student in an Organized Health Care Education/Training Program; Visit Provider Student in an Organized Health Care Education/Training Program
PROC: 0DJD8ZZ Inspection of Lower Intestinal Tract, Via Natural or Artificial Opening Endoscopic (ICD-10-PCS; CPT 45378; principal; 2023-09-28 09:30)
DX: Z12.11 Encounter for screening for malignant neoplasm of colon (principal); D12.3 Benign neoplasm of transverse colon; Z86.010 Personal history of colon polyps; K64.1 Second degree hemorrhoids; E11.9 Type 2 diabetes mellitus without complications
CPT/HCPCS: 45385; 00123; 88305; J2704

== ENCOUNTER 2024-07-20 12:53 | Outpatient (CLI) | payer MEDICARE, SELFPAY ==
--- NOTE | 2024-07-20 12:45 | DI.RAD_ITS ---
Exam(s) XR ABDOMEN FLAT UPRIGHT EXAM: 2D digital imaging was performed. CLINICAL HISTORY: Mucous bowel movements, ? obstruction,constipation, k59.00. COMPARISON: No exams were available for comparison TECHNIQUE: Supine and upright views of the abdomen were performed. FINDINGS: BOWEL GAS PATTERN: Nondistended.No free air. Normal quantity of stool, seen mainly at the right colo n. CALCIFICATIONS: No urinary tract calcifications. OSSEOUS STRUCTURES: Degenerative changes of both hips. Visualized portions of chest: Unremarkable. Soft tissues: Unremarkable. IMPRESSION: 1. Nonobstructive bowel gas pattern. Normal quantity of fecal material. 2. No radiopaque calculi. 3. No free air. DATA REPOSITORY: RADIATION DOSE DELIVERED:
--- OUTSIDE RECORDS SUMMARY | 2024-07-20 12:55 | XMS_ITS | Encounter Summary ---
Author Organization [facility] [place] [address] Care Team Providers Care Brazer Production Line Name Role Phone Faye Dougherty MD Primary Care Provider [phone] Encounter Details Date Type Department Care Team (Late st Contact Info) Description 02/28/2018 Refill Dermatology at [address] [phone] Genesis Mike, INTERNET SALES MANAGER Social History Tobacco Use Types Packs/Day Years Used Date Smoking Tobacco: Never Smokeless Tobacco: Never Sex and Gender Information Value Date Recorded Sex Assigned at Not on file Gender Identity Not on file Sexual Orientation Not on file documented as of this encounter Plan of Treatment Not on file documented as of this encounter Visit Diagnoses Not on filedocumented in this encounter Care Teams Brazer Production Line Relationship Specialty Start Date End Date Faye Dougherty MD [address] [place] [address] PCP - General General Internal Medicine 01/27/18 documented as of this encounter
--- OUTSIDE RECORDS SUMMARY | 2024-07-20 12:55 | XMS_ITS | Encounter Summary ---
Author Organization [facility] Address [facility] [place] [address] Care Team Providers Care Transportation Equipment Painter Name Role Phone Faye Dougherty MD Primary Care Provider [phone] Reason for Visit * Reason Comments Follow-up Skin Check Encounter Details Date Type Department Care Team (Late st Contact Info) Description 03/31/2018 8:00 AM EDT Office Visit Dermatology at [address] [phone] Bk Santiago MD [address] [facility] [place] [address] Seborrheic keratosis Social History Tobacco Use Types Packs/Day Years Used Date Smoking Tobacco: Never Smokeless Tobacco: Never Sex and Gender Information Value Date Recorded Sex Assigned at Not on file Gender Identity Not on file Sexual Orientation Not on file documented as of this encounter Progress Notes * Bk Santiago MD - 03/31/2018 8:00 AM [...] By then she will have been off of the cream for 2 weeks. 4. Her son is getting in May 28 in [facility] on she wants to have this cleared up by then : Faye Dougherty MD documented in this encounter Plan of Treatment Not on file documented as of this encounter Visit Diagnoses Diagnosis Seborrheic keratosis Other seborrheic keratosis documented in this encounter Care Teams Transportation Equipment Painter Relationship Specialty Start Date End Date Faye Dougherty MD [address] [place] [address] PCP - General General Internal Medicine 01/27/18 documented as of this encounter
--- OUTSIDE RECORDS SUMMARY | 2024-07-20 12:55 | XMS_ITS | Encounter Summary ---
Author Organization [facility] Address [facility] [place] [address] Care Team Providers Care Software Engineer Web Services Name Role Phone Faye Dougherty MD Primary Care Provider [phone] Reason for Visit * Reason Comments Follow-up right cheek Encounter Details Date Type Department Care Team (Late st Contact Info) Description 04/29/2018 10:45 AM EDT Office Visit Dermatology at [address] [phone] Bk Santiago MD [address] [facility] [place] [address] History of basal cell carcinoma; Seborrheic keratosis Social History Tobacco Use Types Packs/Day Years Used Date Smoking Tobacco: Never Smokeless Tobacco: Never Sex and Gender Information Value Date Recorded Sex Assigned at Not on file Gender Identity Not on file Sexual Orientation Not on file documented as of this encounter Progress Notes * Bk Santiago MD - 04/29/2018 10:45 AM [...] Patient's son is getting May 28 in [facility] and wished her well forthat 3. Return to clinic here in 1 year for repeat check CC: Faye Dougherty MD documented in this encounter Plan of Treatment Not on file documented as of this encounter Visit Diagnoses Diagnosis History of basal cell carcinoma Personal history of other malignant neoplasm of skin Seborrheic keratosis Other seborrheic keratosis documented in this encounter Care Teams Software Engineer Web Services Relationship Specialty Start Date End Date Faye Dougherty MD [address] [place] [address] PCP - General General Internal Medicine 01/27/18 documented as of this encounter
--- OUTSIDE RECORDS SUMMARY | 2024-07-20 12:55 | XMS_ITS | Clinical Summary ---
Author Organization [facility] Address [facility] [place] [address] Care Team Providers Care Asp Net Software Developer Name Role Phone Faye Dougherty MD Primary Care Provider [phone] Allergies No known active allergies Medications Medication Sig Dispensed Refills Start Date End Date Status imiquimod (ALDARA) 5 % Cream in Packet Apply to right cheek area every HS Wednesday thru Wednesday (Not on weekends) for (4) four weeks 12 each 1 02/28/2018 Active Additional Information Patient not taking.Reported on 04/29/2018 Active Problems Problem Noted Date Diagnosed Date Seborrheic keratosis 01/27/2018 Social History Tobacco Use Types Packs/Day Years Used Date Smoking Tobacco: Never Smokeless Tobacco: Never Sex and Gender Information Value Date Recorded Sex Assigned at Not on file Gender Identity Not on file Sexual Orientation Not on file Plan of Treatment Health Maintenance Due Date Last Done Comments CT Colonography 1955 Colonoscopy 1955 Colorectal Cancer Screening 1955 FIT DNA 1955 FIT 1955 Sigmoidoscopy (10 year) with FIT yearly 1955 Sigmoidoscopy 1955 Hepatitis C Screening 01/27/1974 Tetanus/Diphtheria/Pertussis Vaccines (1 - Tdap) 01/27 Breast Cancer Share Decision Needed 1996 Breast Cancer screening 1996 Zoster vaccine (1 of 2) 01/27/2006 Advance Directive 01/27/2011 Bone Density Scan 01/27/2021 Pneumoccocal Vaccine: 65+ (1 of 1 - PCV) 01/27/2021 Covid-19 Vaccine (1 - 2022-24 season) 2024 Influenza (Flu) vaccine (1 o f 1 - Influenza standard series) 05/14/2024 Care Teams Asp Net Software Developer Relationship Specialty Start Date End Date Faye Dougherty MD [address] [place], [place] [id number] PCP - General General Internal Medicine 01/27/18
--- OUTSIDE RECORDS SUMMARY | 2024-07-20 12:55 | XMS_ITS | Encounter Summary ---
Author Organization [facility] Address [facility] [place] [address] Care Team Providers Care Technical Editor Name Role Phone Faye Dougherty MD Primary Care Provider [phone] Reason for Visit * Reason Comments Follow-up Skin Check Encounter Details Date Type Department Care Team (Late st Contact Info) Description 02/28/2018 8:30 AM EDT Office Visit Dermatology at [address] [address] Bk Santiago MD [address] [facility] [place] [address] Seborrheic keratosis Social History Tobacco Use Types Packs/Day Years Used Date Smoking Tobacco: Never Smokeless Tobacco: Never Sex and Gender Information Value Date Recorded Sex Assigned at Not on file Gender Identity Not on file Sexual Orientation Not on file documented as of this encounter Progress Notes * Bk Santiago MD - 02/28/2018 8:30 AM EDT Problem: Follow-up right cheek lesion Camilla follows up and unfortunately she still has erythematous patches on her right cheek peripheral to the centralized site of a treated Gurdeep [...] cream, 12 packets, to her [facility] in [place] with 1 refill. 3. Return to clinic in 1 month for repeat check CC: Faye Dougherty MD documented in this encounter Plan of Treatment Not on file documented as of this encounter Visit Diagnoses Diagnosis Seborrheic keratosis Other seborrheic keratosis documented in this encounter Care Teams Technical Editor Relationship Specialty Start Date End Date Faye Dougherty MD [address] [place] [address] PCP - General General Internal Medicine 01/27/18 documented as of this encounter
--- OUTSIDE RECORDS SUMMARY | 2024-07-20 12:55 | XMS_ITS | Referral Summary ---
Author Organization [facility] Address [address] [place] [address] Care Team Providers Care Glass Enamel Mixer Name Role Phone Faye Dougherty MD Primary Care Provider [phone] Social History Tobacco Use Types Packs/Day Years Used Date Smoking Tobacco: Never Assessed Interpersonal Safety Answer Date Record ed Physically Hurt Never 04/25/2020 Verbally Threaten Not on file 04/25/2020 Sex and Gender Information Value Date Recorded Sex Assigned at Not on file Gender Identity Not on file Sexual Orientation Not on file Plan of Treatment Not on file Care Teams Glass Enamel Mixer Relationship Specialty Start Date End Date Faye Dougherty MD [address] [place] [address] [facility] - General 09/13/19
--- OUTSIDE RECORDS SUMMARY | 2024-07-20 12:55 | XMS_ITS | Encounter Summary ---
Author Organization [facility] Address [address] [place] [address] Care Team Providers Care Repacker Name Role Phone Faye Dougherty MD Primary Care Provider [phone] Encounter Details Date Type Department Care Team (Late st Contact Info) Description 09/28/2023 Lab Requisition [facility] Pathology & Laboratory Medicine - [facility] [address] [place] [address] Luis Eduardo Brown MD [address] [place] [id number] Encounter for other general examination Social History Tobacco Use Types Packs/Day Years [...] on file documented as of this encounter Procedures Procedure Name Priority Date/Time Associated Diagnosis Comments SURGICAL PATHOLOGY Today 09/28/2023 9: 44 EST Encounter for other general examination documented in this encounter Results * SURGICAL PATHOLOGY (09/28/2023 9:44 EST) Note to Patient The following pathology results have been interpreted by your pathologist and may be available to you before your health provider has had the opportunity to review them. Please allow time for your provider to receive these results and explore management options, if applicable. 10/01/2023 11:46 EST [facility] Final Diagnosis A. COLON, TRANSVERSE, POLYP, BIOPSY: - Tubular adenoma fragments. 10/01/2023 11:46 [facility] Attestation There was significant resident/fellow involvement in the diagnostic evaluation of this case. By the signature below, the attending physician certifies that they have personally conducted a gross and/or microscopic examination of the described specimens and rendered or confirmed the above diagnosis. 10/01/2023 11:46 [facility] at 1146 Clinical History Hx polyps 10/01/2023 11:46 [facility] Gross Description A. Received in formalin labelled with proper patient identification (initials D, M) and transverse colon polyp are 4 white to foy tissue fragments (0.2 x 0.1 x 0.1 cm to 0.5 x 0.3 x 0.2 cm). Entirely submitted in A1. Soha Moreno 09/29/2023 9:04 10/01/2023 11:46 [facility] Resident/Doroteo w: Amadeo Clement MD 10/01/2023 11:46 [facility] Performing Lab [facility] 10/01/2023 11:46 [facility] Scanned Images 10/01/2023 11:46 [facility] Tissue COLON STRUCTURE / Unknown 09/28/2023 9:44 EST 09/28/2023 19:23 EST Luis Eduardo Brown MD PATHOLOGY [facility] [address] [place] [address] documented in this encounter Visit Diagnoses Diagnosis Encounter for other general examination documented in this encounter Care Teams Repacker Relationship Specialty Start Date End Date Faye Dougherty MD [address] [place] [address] PCP - General 09/13/19 documented as of this encounter
--- OUTSIDE RECORDS SUMMARY | 2024-07-20 12:55 | XMS_ITS | Encounter Summary ---
Author Organization [facility] [place] [address] Care Team Providers Care Title Department Manager Name Role Phone Faye Dougherty MD Primary Care Provider [phone] Reason for Visit * Reason Comments Follow-up Skin Check Encounter Details Date Type Department Care Team (Late st Contact Info) Description 01/27/2018 3:30 PM EDT Office Visit Dermatology at [address] [phone] Bk Santiago MD [address] [facility] [place] [address] Seborrheic keratosis Social History Tobacco Use Types Packs/Day Years Used Date Smoking Tobacco: Never Smokeless Tobacco: Never Sex and Gender Information Value Date Recorded Sex Assigned at Not on file Gender Identity Not on file Sexual Orientation Not on file documented as of this encounter Progress Notes * Bk Santiago MD - 01/27/2018 3:30 PM [...] slightly hyperkeratotic papules in a clock-like pattern on her right cheek with no central lesion present. [...] keratosis documented in this encounter Care Teams Title Department Manager Relationship Specialty Start Date End Date Faye Dougherty MD [address] [place] [address] PCP - General General Internal Medicine 01/27/18 documented as of this encounter
--- OUTSIDE RECORDS SUMMARY | 2024-07-20 12:55 | XMS_ITS ---
Author Organization Unknown [facility]VERSE [facility]ACTIONS No information ASSESSMENT No information CHIEF COMPLAINT No information MEDICATIONS No information OBJECTIVE DATA No information PHYSICAL EXAMINATION No information TREATMENT PLAN Planned Care Start Date Provider Encounter for Check-up [id number] PROBLEMS No information RESULTS No information REVIEW OF SYSTEMS No information SUBJECTIVE DATA No information VITAL SIGNS No information
--- OUTSIDE RECORDS SUMMARY | 2024-07-20 12:55 | XMS_ITS | Encounter Summary ---
Author Organization [facility] Address [facility] [place] [address] Care Team Providers Care Board Certified Family Physician Name Role Phone Faye Dougherty MD Primary Care Provider Reason for Visit * Reason Comments Follow-up Skin Check Encounter Details Date Type Department Care Team (Late st Contact Info) Description 02/10/2018 8:00 AM EDT Office Visit Dermatology at [address] [address] Bk Santiago MD [address] [facility] [place] [address] Seborrheic keratosis Social History Tobacco Use Types Packs/Day Years Used Date Smoking Tobacco: Never Smokeless Tobacco: Never Sex and Gender Information Value Date Recorded Sex Assigned at Not on file Gender Identity Not on file Sexual Orientation Not on file documented as of this encounter Progress Notes * Bk Santiago MD - 02/10/2018 8:00 AM EDT Problem: Right cheek lesion Camilla follows up and had a partial response to the last treatment. She still has on her right cheek erythematous scaling patches peripheral to the centralized location of a prior seborrheic keratosis on her right cheek. Her son is getting in [facility] a farm May and she wants to have this cleared up [...] keratosis documented in this encounter Care Teams Board Certified Family Physician Relationship Specialty Start Date End Date Faye Dougherty MD [address] [place] [address] PCP - General General Internal Medicine 01/27/18 documented as of this encounter
--- OUTSIDE RECORDS SUMMARY | 2024-07-20 12:55 | XMS_ITS | Encounter Summary ---
Author Organization [facility] Address [address] [place] [address] Care Team Providers Care Systems Technologist Name Role Phone Faye Dougherty MD Primary Care Provider Encounter Details Date Type Department Care Team (Late st Contact Info) Description 07/09/2021 Lab Requisition [facility] Pathology & Laboratory Medicine - [facility] [address] [place] [address] Faye Dougherty MD [address] [place] [address] [phone] Encounter for other general examination Social History [...] Procedure Name Priority Date/Time Associated Diagnosis Comments PAP TEST Today 07/08/2021 10:45 EDT Encounter for other general examination HPV DNA DETECTION WITH GENOTYPING, PCR Today 07/08/2021 10:45 EDT Encounter for other general examination documented in this encounter Results * HUMAN PAPILLOMAVIRUS (HPV) DETECTION-HIGH RISK TYPES (07/08/2021 10:45 EDT) HPV other High Risk types, PCR Negative Negative 07/17/2021 7:59 EDT [facility] Comment:No E6 or E7 mRNA is detected from HPV types 16,18,31,33,35,39,45,51,52,56,58,59,66, and 68 by accountant manager mediated amplification. Papanicolaou smear specimen (specimen) CERVIX UTERI STRUCTURE / Unknown 07/08/2021 10:45 EDT 07/15/2021 12:01 EDT Faye Dougherty MD MICROBIOLOGY - GENER AL ORDERABLES Performing Organization Address City/State/[facility] Co de Phone Number [facility] [address] [place] [phone] * PAP TEST (07/08/2021 10:45 EDT) Specimens A. Cervix and/or Endocervix , ThinPrep Imaging System with Manual Evaluation 07/17/2021 7:59 T [facility] Specimen Adequacy Satisfactory for Evaluation - transformation zone component present 07/17/2021 7:59 [facility] General Categorization Negative for intraepithelial lesion or malignancy 07/17/2021 7:59 [facility] Descriptive Diagnosis Reactive cellular changes associated with inflammation present (includes repair). 07/17/2021 7:59 [facility] Attestation By the signature below, the attending physician certifies that they have personally conducted a gross and/or microscopic examination of the described specimens and rendered or confirmed the above diagnosis. 07/17/2021 7:59 [facility] at 0759 Clinical History See below 07/17/20 7:59 [facility] HPV The result for the Human Papillomavirus (HPV) Detection-High Risk Types is Negative. No E6 or E7 mRNA is detected from HPV types 16,18,31,33,35,39 ,45,51,52,56,58,5 9,66, and 68 by accountant manager mediated amplification.Lakeisha ting was performed on specimen [id number] and was resulted on 07/17/2021 0720 EDT by VERONIQUE, LAB INSTRUMENT RESULTS IN 07/17/2021 7:59 T [facility] Performing Lab [facility] 07/17/2021 7:59 EDT [facility] Scanned Images 07/17/2021 7:59 EDT [facility] Papanicolaou smear specimen (specimen) CERVIX UTERI STRUCTURE / Unknown 07/08/2021 10:45 EDT 07/09/2021 11:48 EDT Faye Dougherty MD PATHOLOGY ORDERABLES Performing Organization Address City/State/[facility] Co de Phone Number [facility] [address] [place] [address] documented in this encounter Visit Diagnoses Diagnosis Encounter for other general examination documented in this encounter Care Teams Systems Technologist Relationship Specialty Start Date End Date Faye Dougherty MD [address] [place] [address] PCP - General 09/13/19 documented as of this encounter
--- OUTSIDE RECORDS SUMMARY | 2024-07-20 12:55 | XMS_ITS | Clinical Summary ---
Author Organization [facility] Address [address] [place] [address] Care Team Providers Care Montessori Program Director Name Role Phone Faye Dougherty MD Primary [...] Last Done Comments Hepatitis C Screen 1955 RSV Immunization ( o r 60+ Years) (1 - 1-dose 60+ series) 2016 Fall Risk Screening 01/27/2021 COVID-19 Vaccine (2022- season) 2023 Care Teams Montessori Program Director Relationship Specialty Start Date End Date Faye Dougherty MD [address] [place] [address] PCP - General 09/13/19
--- OUTSIDE RECORDS SUMMARY | 2024-07-20 12:55 | XMS_ITS | Encounter Summary ---
Author Organization [facility] [address] Care Team Providers Care Human Resources Intern Name Role Phone Faye Dougherty MD Primary Care Provider [phone] Reason for Visit * Reason Comments Medication Refill Encounter Details Date Type Department Care Team (Late st Contact Info) Description 04/25/2018 Refill Dermatology at [place] [address] [facility] [place] [address] Bk Santiago MD [address] [facility] [place] [address] Social History Tobacco Use Types Packs/Day Years [...] on filedocumented in this encounter Care Teams Human Resources Intern Relationship Specialty Start Date End Date Faye Dougherty MD [address] [place] [address] PCP - General General Internal Medicine 01/27/18 documented as of this encounter
--- OUTSIDE RECORDS SUMMARY | 2024-07-20 12:56 | XMS_ITS | Encounter Summary ---
Author Organization [facility] Address [address] [place] [address] Care Team Providers Care Chef German Name Role Phone Faye Dougherty MD Primary Care Provider [phone] Encounter Details Date Type Department Care Team (Late st Contact Info) Description 04/22/2020 Lab Requisition [facility] Pathology & Laboratory Medicine - [address] [address] Jett Banuelos MD [address] [place] [address] [phone] Encounter for screening for malignant neoplasm of colon Social History Tobacco Use Types Packs/Day Years [...] Date/Time Associated Diagnosis Comments SURGICAL PATHOLOGY Today 04/22/2020 13 :13 EDT Encounter for screening for malignant neoplasm of colon documented in this encounter Results * SURGICAL PATHOLOGY (04/22/2020 13:13 EDT) Final Diagnosis A. COLON, DESCENDING, POLYPS, BIOPSY: - Sessile serrated adenoma(s). - Tubular adenoma. B. COLON, SIGMOID, POLYPS, BIOPSY: -Tubular adenomas. - Hyperplastic polyp. 04/24/2020 10:47 EDT [facility] Attestation There was significant resident/fellow involvement in the diagnostic evaluation of this case. By the signature below, the attending physician certifies that they have personally conducted a gross and/or microscopic examination of the described specimens and rendered or confirmed the above diagnosis. 04/24/2020 10:47 [facility] at 1047 Clinical History Colorectal screening 04/24/2020 10:47 [facility] Gross Description A. Received in formalin labelled with proper patient identification (initials D, M) and 1. Descending colon polyps are a foy-brown focally white sessile polypoid tissue (0.9 x 0.7 x 0.7 cm) and fifteen foy-brown tissues (0.9 x 0.5 x 0.4 cm to 0.2 x 0.1 x 0.1 cm). The polypoid tissue is trisected and entirely submitted in A1, the largest tissue is trisected and entirely submitted in A2, and the remaining specimen is submitted intact in A3-A7. B. Received in formalin labelled with proper patient identification (initials D, M) and 2. Sigmoid polyps are three foy tissues (0.3 x 0.2 x 0.2 cm to 0.2 x 0.2 x 0.1 cm). Entirely submitted in B1. Jonny Dick 04/23/2020 8:27 04/24/2020 10:47 EDT [facility] Resident/Doroteo w: Golden Pacheco MD 04/24/2020 10:47 T [facility] Performing Lab [facility] 04/24/2020 10:47 T [facility] Scanned Images 04/24/2020 10:47 T [facility] Tissue ENTIRE SIGMOID COLON / Unknown 04/22/2020 13:13 EDT 04/22/2020 23:54 EDT Tissue specimen (specimen) SIGMOID COLON STRUCTURE / Unknown 04/22/2020 13:13 EDT 04/22/2020 23:54 EDT Jett Banuelos MD PATHOLOGY ORDERA BLES [facility] [address] [place] [address] documented in this encounter Visit Diagnoses Diagnosis Encounter for screening for malignant neoplasm of colon Special screening for malignant neoplasms, colon documented in this encounter Care Teams Chef German Relationship Specialty Start Date End Date Faye Dougherty MD [address] [place] [address] PCP - General 09/13/19 documented as of this encounter
--- OUTSIDE RECORDS SUMMARY | 2024-07-20 12:56 | XMS_ITS | Encounter Summary ---
Author Organization [facility] Address [address] [place] [address] Care Team Providers Care Temporary Receptionist Name Role Phone Unavailable Primary Care Provider Unavailabl e Encounter Details Date Type Department Care Team (Late st Contact Info) Description 08/01/2009 Orders Only [facility] Laboratory Services - [facility] ([facility]) [address] [place], [place] [id number] Laureano Dougherty MD [address] [place] [address] [phone] Social History Tobacco Use Types Packs/Day Years Used Date Smoking Tobacco: Never Assessed Sex and Gender Information Value Date Recorded Sex Assigned at Not on file Gender Identity Not on file Sexual Orientation Not on file documented as of this encounter Plan of Treatment Not on file documented as of this encounter Procedures Procedure Name Priority Date/Time Associated Diagnosis Comments CYTOPATHOLOGY Routine 08/01/2009 0:00 EST documented in this encounter Results * CYTOPATHOLOGY (08/01/2009 0:00 EST) Pathology Report: CYTOPATHOLOGY REPORT ? Reports generated via electronic interface contain original data; ? however they are lacking the format of the original report. ? Caution should be taken when reading/interpreti ng unformatted reports. ? Name: ? SEVERO CHAPARRO ? Accession #: ? [id number] ? : ? 1955 (Age: 54) ??F ?Collect Date: ? 08/01/2009 ? Location: ? [facility] ? Receive Date: ? 08/01/2009 ? Provider: ?LAUREANO DOUGHERTY MD ? Copy to: ? Specimen/Source: ?Pap Test, Cervix, ThinPrep Imaging System with manual ?? evaluation ? Last Menstrual Period: ? 1999 ? Other: ? HPVA - HPV testing requested if ASC-US on the current ThinPrep Pap test. ? SPECIMEN ADEQUACY ? Satisfactory for Evaluation ? - assessment of transformation zone component not applicable ( e.g. atrophy, ? vaginal sample, hysterectomy) ? GENERAL CATEGORIZATION ? Negative for Intraepithelial Lesion or Malignancy ? Document reviewed and electronically signed by: ? Daisha Malin, SCT(ASCP) ? Report Date: ??08/07/2009 15:39 ? End of Report ? [facility] 08/01/2009 08/01/2009 Laureano Dougherty MD PATHOLOGY ORDERABLES [facility] [address] [place] [address] documented in this encounter Visit Diagnoses Not on filedocumented in this encounter
--- OUTSIDE RECORDS SUMMARY | 2024-07-20 12:56 | XMS_ITS | Encounter Summary ---
Author Organization [facility] Address [address] [place] [address] Care Team Providers Care Street Roller Engineer Name Role Phone Faye Dougherty MD Primary Care Provider [phone] Encounter Details Date Type Department Care Team (Late st Contact Info) Description 07/03/2020 Lab Requisition [facility] Pathology & Laboratory Medicine - [facility] [address] [place] [address] Faye Dougherty MD [address] [place] [address] [phone] Encounter for other general examination Social History [...] Date/Time Associated Diagnosis Comments PAP TEST Today 07/02/2020 11:15 EDT Encounter for other general examination HPV DNA DETECTION WITH GENOTYPING, PCR Today 07/02/2020 11:15 EDT Encounter for other general examination documented in this encounter Results * HUMAN PAPILLOMAVIRUS (HPV) DETECTION-HIGH RISK TYPES (07/02/2020 11:15 EDT) HPV other High Risk types, PCR Negative Negative 08/07/2020 8:05 EST [facility] Comment:No E6 or E7 mRNA is detected from HPV types 16,18,31,33,35,39,45,51,52,56,58,59,66, and 68 by batch heat treat operator mediated amplification. Papanicolaou smear specimen (specimen) CERVIX UTERI STRUCTURE / Unknown 07/02/2020 11:15 EDT 08/06/2020 12:17 EST Faye Dougherty MD MICROBIOLOGY - GENER AL ORDERABLES [facility] [address] [place] [address] * PAP TEST (07/02/2020 11:15 EDT) Specimens A. Cervix and/or Endocervix , ThinPrep Imaging System with Manual Evaluation 07/10/2020 9:29 [facility] Specimen Adequacy Satisfactory for Evaluation - transformation zone component present 07/10/2020 9:29 [facility] General Categorization Epithelial Cell Abnormality 07/10/2020 9:29 [facility] Descriptive Diagnosis Squamous Cell Abnormality - Atypical squamous cells, undetermined significance (ASC-US). 07/10/2020 9:29 [facility] Educational Comments [facility] recommends following ASCCP's 2012 Updated Consensus Guidelines for the Management of Abnormal Cervical Cancer Screening Tests and Cancer Precursors (JLGTD, 2013; 17(5):S1-S27). Consensus guidelines are available online at www.asccp.org. 07/10/2020 9:29 [facility] Attestation By the signature below, the attending physician certifies that they have personally conducted a gross and/or microscopic examination of the described specimens and rendered or confirmed the above diagnosis. 07/10/2020 9:29 [facility] at 0929 Clinical History See below 07/10/20 9:29 [facility] Performing Lab [facility] 07/10/2020 9:29 [facility] Scanned Images 07/10/2020 9:29 [facility] Papanicolaou smear specimen (specimen) CERVIX UTERI STRUCTURE / Unknown 07/02/2020 11:15 EDT 07/03/2020 10:03 EDT Faye Dougherty MD PATHOLOGY ORDERABLES [facility] [address] [place] [address] documented in this encounter Visit Diagnoses Diagnosis Encounter for other general examination documented in this encounter Care Teams Street Roller Engineer Relationship Specialty Start Date End Date Faye Dougherty MD [address] [place] [address] PCP - General 09/13/19 documented as of this encounter
--- OUTSIDE RECORDS SUMMARY | 2024-07-20 12:56 | XMS_ITS | Encounter Summary ---
Author Organization [facility] Address [address] [place] [address] Care Team Providers Care Ross Lift Operator Name Role Phone Unavailable Primary Care Provider Unavailabl e Encounter Details Date Type Department Care Team (Late st Contact Info) Description 11/07/2013 Results Only [facility] Laboratory Services - [facility] ([facility]) [address] [place], [place] [address] Laureano Dougherty MD [address] [place] [address] [phone] Social History Tobacco Use Types Packs/Day Years Used Date Smoking Tobacco: Never Assessed Sex and Gender Information Value Date Recorded Sex Assigned at Not on file Gender Identity Not on file Sexual Orientation Not on file documented as of this encounter Plan of Treatment Not on file documented as of this encounter Procedures Procedure Name Priority Date/Time Associated Diagnosis Comments PAP TEST- RESULT ONLY Routine 11/07/2013 0:00 EST documented in this encounter Results * PAP TEST- RESULT ONLY (11/07/2013 0:00 EST) Pathology Report: CYTOPATHOLOGY REPORT Reports generated via electronic interface contain original data; however they are lacking the format of the original report. Caution should be taken when reading/interpreti ng unformatted reports. Name: ? CHAPARRO NUÑEZ ? Accession #: ? [id number] : ? 1955 (Age: 58) ??F ?Collect Date: ? 11/07/2013 Location: ? [facility] ? Receive Date: ? 11/08/2013 Provider: ?LAUREANO DOUGHERTY MD Copy to: ? Specimen/Source: ?Pap Test, Endocervix, ThinPrep Imaging System with manual evaluation Last Menstrual Period: ? unknown ? SPECIMEN ADEQUACY ? Satisfactory for Evaluation - assessment of transformation zone component not applicable ( e.g. atrophy, vaginal sample, hysterectomy) - scant squamous epithelial component secondary to excessive inflammation GENERAL CATEGORIZATION ? Negative for Intraepithelial Lesion or Malignancy ? Document reviewed and electronically signed by: ? Fatoumata Espino, CT(ASCP)(IAC) ? Report Date: ??11/15/2013 15:05 End of Report [facility] 11/07/2013 11/08/2013 Laureano Dougherty MD PATHOLOGY ORDERABLES [facility] [address] [place] [address] documented in this encounter Visit Diagnoses Not on filedocumented in this encounter
--- OUTSIDE RECORDS SUMMARY | 2024-07-20 12:56 | XMS_ITS | Encounter Summary ---
Author Organization [facility] Address [address] [place] [address] Care Team Providers Care Diamond Saw Operator Name Role Phone Unavailable Primary Care Provider Unavailabl e Encounter Details Date Type Department Care Team (Late st Contact Info) Description 07/14/2017 Results Only [facility]- [facility] [phone] Laureano Dougherty MD [address] [place], [place] [phone] Social History Tobacco Use Types Packs/Day Years [...] Diagnosis Comments PAP TEST- RESULT ONLY Routine 07/14/2017 0:00 EDT documented in this encounter Results * PAP TEST- RESULT ONLY (07/14/2017 0:00 EDT) Pathology Report: CYTOPATHOLOGY REPORT Reports generated via electronic interface contain original data; however they are lacking the format of the original report. Caution should be taken when reading/interpreti ng unformatted reports. Name: ? CHAPARRO NUÑEZ ? Accession #: ? [id number] : ? 1955 (Age: 62) ??F ?Collect Date: ? 07/14/2017 Location: ? [facility] ? Receive Date: ? 07/15/2017 Provider: ?LAUREANO DOUGHERTY MD Copy to: ? Specimen/Source: ?Pap Test, Cervix, ThinPrep Imaging System with manual evaluation Last Menstrual Period: ? > 10 YRS ? SPECIMEN ADEQUACY ? Satisfactory for Evaluation - transformation zone component present GENERAL CATEGORIZATION ? Negative for Intraepithelial Lesion or Malignancy ? Document reviewed and electronically signed by: ? OCTAVIANO Marshall(ASCP) ? Report Date: ??07/28/2017 15:11 End of Report [facility] 07/14/2017 07/15/2017 Laureano Dougherty MD PATHOLOGY ORDERABLES [facility] [address] [place] [address] documented in this encounter Visit Diagnoses Not on filedocumented in this encounter
--- OUTSIDE RECORDS SUMMARY | 2024-07-20 12:56 | XMS_ITS | Encounter Summary ---
Author Organization [facility] Address [address] [place] [address] Care Team Providers Care Telecommunicator Name Role Phone Unavailable Primary Care Provider Unavailabl e Encounter Details Date Type Department Care Team (Late st Contact Info) Description 01/12/2001 Results Only [facility] - Gamaliel conversion [address] [place] [address] Dorcas Carney, [facility] [address] [place] [phone] Social History Tobacco Use Types Packs/Day Years Used Date Smoking Tobacco: Never Assessed Sex and Gender Information Value Date Recorded Sex Assigned at Not on file Gender Identity Not on file Sexual Orientation Not on file documented as of this encounter Plan of Treatment Not on file documented as of this encounter Procedures Procedure Name Priority Date/Time Associated Diagnosis Comments CYTOPATHOLOGY Routine 01/12/2001 0:00 EDT documented in this encounter Results * CYTOPATHOLOGY (01/12/2001 0:00 EDT) Pathology Report: CYTOPATHOLOGY REPORT Reports generated via electronic interface contain original data; however they are lacking the format of the original report. Caution should be taken when reading/interpreti ng unformatted reports. Name: ? CHAPARRO NUÑEZ ? Accession #: ? [id number] : ? 1955 (Age: 45) ??F ?Collect Date: ? 01/12/2001 Location: ? [facility] ? Receive Date: ? 01/13/2001 Provider: ?DORCAS CARNEY MUSIC SOUND LIGHT TECHNICIAN Copy to: ? Specimen/Source: ?Conventional Pap Test, Cervix/Endocervix Last Menstrual Period: ? 10/09/00 Previous Gynecologic Pathology: ? ASC-US: , repeats NL ? SPECIMEN ADEQUACY ? Satisfactory for evaluation but limited by an absence of a transformation zone component. GENERAL CATEGORIZATION ? Within Normal Limits ? Document reviewed and electronically signed by: ? OCTAVIANO Marshall(ASCP) ? Report Date: ??01/13/2001 15:47 End of Report [facility] 01/12/2001 01/13/2001 Dorcas Carney MUSIC SOUND LIGHT TECHNICIAN PATHOLOGY ORDERABLES [facility] [address] [place] [address] documented in this encounter Visit Diagnoses Not on filedocumented in this encounter
--- OUTSIDE RECORDS SUMMARY | 2024-07-20 12:56 | XMS_ITS | Encounter Summary ---
Author Organization [facility] Address [address] [place] [address] Care Team Providers Care Coupon Collection Clerk Name Role Phone Unavailable Primary Care Provider Unavailabl e Encounter Details Date Type Department Care Team (Late st Contact Info) Description 09/09/2010 Results Only [facility] Laboratory Services - [facility] ([facility]) [address] [place], [place] [address] Laureano Dougherty MD [address] [place] [address] [phone] Social History Tobacco Use Types Packs/Day Years Used Date Smoking Tobacco: Never Assessed Sex and Gender Information Value Date Recorded Sex Assigned at Not on file Gender Identity Not on file Sexual Orientation Not on file documented as of this encounter Plan of Treatment Not on file documented as of this encounter Procedures Procedure Name Priority Date/Time Associated Diagnosis Comments CYTOPATHOLOGY Routine 09/09/2010 0:00 EST documented in this encounter Results * CYTOPATHOLOGY (09/09/2010 0:00 EST) Pathology Report: CYTOPATHOLOGY REPORT ? Reports generated via electronic interface contain original data; ? however they are lacking the format of the original report. ? Caution should be taken when reading/interpreti ng unformatted reports. ? Name: ? CHAPARRO NUÑEZ ? Accession #: ? [id number] ? : ? 1955 (Age: 55) ??F ?Collect Date: ? 09/09/2010 ? Location: ? [facility] ? Receive Date: ? 09/10/2010 ? Provider: ?LAUREANO DOUGHERTY MD ? Copy to: ? Specimen/Source: ?Pap Test, Endocervix, ThinPrep Imaging System with ? manual evaluation ? Last Menstrual Period: ? unknown ? SPECIMEN ADEQUACY ? Satisfactory for Evaluation ? - transformation zone component present ? GENERAL CATEGORIZATION ? Negative for Intraepithelial Lesion or Malignancy ? Document reviewed and electronically signed by: ? Kapil Ernandez, CT(ASCP) ? Report Date: ??09/16/2010 09:08 ? End of Report ? [facility] 09/09/2010 09/10/2010 Laureano Dougherty MD PATHOLOGY ORDERABLES [facility] [address] [place] [address] documented in this encounter Visit Diagnoses Not on filedocumented in this encounter
== END 2024-07-20 13:13 ==
PROVIDERS: PCP Student in an Organized Health Care Education/Training Program; Visit Provider Family Medicine
DX: K59.00 Constipation, unspecified (principal)
CPT/HCPCS: 74019

== ENCOUNTER 2024-07-26 02:23 | Outpatient (CLI) | payer MEDICARE, SELFPAY ==
[2024-07-26 13:08] LABS: Hemoglobin A1C 6.1 % (<5.7)
[2024-07-26 13:51] LABS: ALT 39 U/L (14-59); AST 24 U/L (15-37); Albumin 3.5 g/dL (3.4-5.0); Alkaline Phosphatase 77 U/L (46-116); Anion Gap 6.4 mmol/L (3-11); BUN 8 mg/dL (7-18); Bilirubin, Total 0.57 mg/dL (0.2-1.0); CO2 29.6 mmol/L (21.0-32.0); CREATININE 0.9 mg/dL (0.55-1.02); Calcium 9.7 mg/dL (8.5-10.1); Calculated LDL 108 mg/dL (<100); Chloride 105 mmol/L (98-107); Cholesterol 186 mg/dL (<200); Estimated GFR 69.64 (mL/min/1.73m2); Glucose 119 mg/dL (74-106); HDL Cholesterol 63 mg/dL (40-60); Potassium 4.1 mmol/L (3.5-5.1); Sodium 141 mmol/L (136-145); Total Protein 7.6 g/dL (6.4-8.2); Triglyceride 79 mg/dL (<150); Vitamin D 25 Total 31.6 ng/mL (30-100)
== END 2024-07-26 02:24 | disposition home or self-care (01) ==
LOC: LBO 02:23
PROVIDERS: PCP Student in an Organized Health Care Education/Training Program; Referring Provider Student in an Organized Health Care Education/Training Program; Visit Provider Student in an Organized Health Care Education/Training Program
DX: R73.09 Other abnormal glucose (principal); M85.80 Other specified disorders of bone density and structure, unspecified site; Z78.0 Asymptomatic menopausal state; Z13.220 Encounter for screening for lipoid disorders; Z13.1 Encounter for screening for diabetes mellitus
CPT/HCPCS: 36415; 80053; 80061; 82306; 83036

== ENCOUNTER 2024-08-01 01:53 | Outpatient (CLI) | payer MEDICARE, SELFPAY ==
--- NOTE | 2024-08-01 10:32 | DI.RAD_ITS ---
Exam(s) XR KNEE RT 2V AP,LAT EXAM: XR KNEE RT 2V AP,LAT CLINICAL HISTORY: eval joint spaces/? bony path,RT KNEE PAIN,M25.561,OSTEOPENIA. TECHNIQUE: 2D digital imaging was performed. Two views. COMPARISON: None FINDINGS: BONES: No acute fracture is present. No bony destructive lesion is seen. Degenerative subchondral c yst in the lateral tibial plateau. JOINTS: Mild to moderate narrowing of the lateral femoral tibial joint space. Periarticular spurring . Medial femoral tibial joint space is maintained. Mild spurring at the articular aspect of the pat jadon. The knee is normally aligned. No joint effusion is seen. SOFT TISSUE: Normal. IMPRESSION: Moderate degenerative changes of the lateral femoral tibial joint space. DATA REPOSITORY: RADIATION DOSE DELIVERED:
--- NOTE | 2024-08-01 10:32 | DI.RAD_ITS ---
Exam(s) XR HIP RT COMPLETE AP PELVIS EXAM: XR HIP RT COMPLETE AP PELVIS CLINICAL HISTORY: eval joint spaces/? bony path,RT HIP PAIN, M25.551,OSTEOPENIA. TECHNIQUE: 2D digital imaging was performed. Two views COMPARISON: CR XR HIP RT COMPLETE AP PELVIS from 07/31/2022 CR XR DEXA BONE DENSITY W/WO TITA from 08/07/2022 FINDINGS: BONES: No acute fracture is present. No bony destructive lesion is seen. Degenerative subchondral cys ts again noted in both femoral heads. JOINTS: No dislocation present. Moderate hip joint space narrowing, stable from prior. Prominent per iarticular spurring. The SI joints and pubic symphysis show mild degenerative changes. SOFT TISSUE: Normal. 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 DATA REPOSITORY: RADIATION DOSE DELIVERED:
--- NOTE | 2024-08-01 10:32 | DI.RAD_ITS ---
Exam(s) XR KNEE LT 3V AP,LAT,EVELIN EXAM: XR KNEE LT 3V AP,LAT,EVELIN CLINICAL HISTORY: eval joint spaces/?bony path,LT KNEE PAIN,M25.562,OSTEOPENIA. TECHNIQUE: 2D digital imaging was performed. Three views. COMPARISON: No exams were available for comparison FINDINGS: BONES: No acute fracture is present. No bony destructive lesion is seen. JOINTS: The knee is normally aligned. A small joint effusion is seen. Mild narrowing lateral femoral tibial joint space and mild periarticular spurring. The medial femoral tibial joint space is mainta ined. Minimal spurring at the articular aspect of the patella. SOFT TISSUE: Normal. IMPRESSION: Mild degenerative changes of the lateral femoral tibial joint. DATA REPOSITORY: RADIATION DOSE DELIVERED:
== END 2024-08-01 02:13 ==
LOC: DI 01:53
PROVIDERS: PCP Student in an Organized Health Care Education/Training Program; Visit Provider Student in an Organized Health Care Education/Training Program
DX: M16.0 Bilateral primary osteoarthritis of hip (principal); M17.12 Unilateral primary osteoarthritis, left knee; M17.11 Unilateral primary osteoarthritis, right knee
CPT/HCPCS: 73562; 73502; 73560

== ENCOUNTER 2025-06-21 04:28 | Outpatient (CLI) | payer MEDICARE, SELFPAY ==
--- NOTE | 2025-06-21 07:30 | DI.MAMMO_ITS ---
Exam(s) MAMMO SCREENING EXAM: MAMMO SCREENING CLINICAL HISTORY: screening,Z12.39 TECHNIQUE: Bilateral full field digital CC and MLO mammographic images were obtained with 3D tomosynthesis and utilizing computer aided detection (CAD). COMPARISON: Comparison is made with prior examinations. FINDINGS: Masses/Architectural Distortion: No suspicious masses or areas of architectural distortion are present. Microcalcifications: No suspicious pleomorphic-type are seen. Skin Thickening/Nipple Retraction: None. IMPRESSION: 1. No significant interval change with no specific features of malignancy noted. 2. Unless there is more urgent need, screening mammography is recommended, as per [employer] guidelines. BI-RADS Category 1 - Negative Breast Density - Category B - There are scattered areas of fibroglandular density. Breast density Category C or D implies that the patient has dense breast tissue. Dense breast tissue can make it harder to find cancer on a mammogram. Dense breast tissue is also associated with an increased risk of breast cancer. This information about the result of the mammogram report was provided to the patient to raise their awareness. Use this report when you speak with the patient about their risks for breast cancer, which includes their family history. At that time, you may recommend additional screening tests (Ultrasound or MRI) as these tests may add significant information. A negative radiographic report should not delay biopsy if a dominant or clinically suspicious mass is present. Up to ten percent of cancers are not identified on mammography. A negative report may reinforce clinical impression. Adenosis and dense breasts may obscure an underlying neoplasm. False positive reports average 6 to 10%. Patient will receive a letter notifying them of these results.
--- NOTE | 2025-06-21 07:30 | DI.DEXA_ITS ---
Exam(s) XR DEXA BONE DENSITY W/WO TITA EXAM: XR DEXA BONE DENSITY W/WO TITA CLINICAL HISTORY: f/u osteopenia,N95.9, MENOPAUSAL DISORDER TECHNIQUE: Routine DEXA evaluation of the lumbar spine, hip, or forearm. COMPARISON: Prior DEXA scan of July 2022. FINDINGS: Performed on a Nextt unit. Lateral image: No compression fracture evident. Lumbar Spine total T-score: -0.2. Prior reading in 2021 was -0.8. Both readings are in normal range Hip total T-score:0.3. Prior reading in 2021 was -0.1. Both readings are in normal range Independent reading at the level of the femoral neck yields T-score of -0.1. This is also in normal range. Forearm total T-score: -1.3. This is osteopenia range. IMPRESSION: Bone mineral density measures in the normal range for the lumbar spine and hip and osteopenia range for the wrist/forearm. Fracture risk is low for the lumbar spine and hip and moderate for the wrist/forearm. Note: Any spine fracture indicates 5x risk for subsequent spine fracture and 2x risk for subsequent hip fracture. World Health Organization criteria for BMD interpretation classify patients: Normal...... T- Score at or above -1.0 Osteopenic... T- Score between -1.0 and -2.5 Osteoporosis... T-Score at or below -2.5
== END 2025-06-21 04:48 ==
LOC: DI 04:28
PROVIDERS: PCP Family Medicine; Visit Provider Family Medicine
DX: Z12.31 Encounter for screening mammogram for malignant neoplasm of breast (principal); N95.9 Unspecified menopausal and perimenopausal disorder
CPT/HCPCS: 77063; 77067; 77080

== ENCOUNTER 2025-07-09 03:13 | Outpatient (CLI) | payer MEDICARE, SELFPAY ==
[2025-07-09 08:15] LABS: Anion Gap 6.7 mmol/L (3-11); BUN 16 mg/dL (7-18); CO2 31.3 mmol/L (21.0-32.0); Calcium 9.0 mg/dL (8.5-10.1); Calculated LDL 122 mg/dL (<100); Chloride 103 mmol/L (98-107); Cholesterol 209 mg/dL (<200); Estimated GFR 79.71 (mL/min/1.73m2); Glucose 124 mg/dL (74-106); HDL Cholesterol 72 mg/dL (>or=50); Potassium 4.0 mmol/L (3.5-5.1); Sodium 141 mmol/L (136-145); Triglyceride 77 mg/dL (<150)
== END 2025-07-09 03:14 | disposition home or self-care (01) ==
LOC: LBO 03:13
PROVIDERS: PCP Family Medicine; Visit Provider Family Medicine
DX: Z13.1 Encounter for screening for diabetes mellitus (principal); Z13.6 Encounter for screening for cardiovascular disorders
CPT/HCPCS: 36415; 80048; 80061